=== PATIENT | female | born 1990 | race Two or more races ===

== ENCOUNTER 2024-09-08 15:07 | Observation (INO) | payer MEDICAID ==
[2024-09-08 16:30] LABS: Urine Bacteria FEW /hpf (None Seen); Urine Blood Negative /uL (Negative); Urine Clarity Clear (Clear); Urine Color Light-Yellow (Yellow); Urine Protein, UAD Negative (Negative); Urine Specific Gravity 1.009 (1.001-1.035); Urine Squamous Epithelial Cell FEW /hpf (<5); Urine Urobilinogen Normal (Negative); Urine WBC 12 /HPF (0-5); Urine pH 6.5 (5.0-9.0)
[2024-09-08 16:47] LABS: Basophils # (auto) 0 10 ^3/uL (0-0.2); Basophils % (auto) 0.6 % (0.0-2.0); Eosinophils # (auto) 0 10 ^3/uL (0-0.8); Eosinophils % (auto) 0.4 % (0.0-7.0); Hematocrit 38.2 % (36.0-46.0); Hemoglobin 12.8 g/dL (12.2-16.2); Lymphocytes # (auto) 1.3 10 ^3/uL (0.4-5.4); Lymphocytes % (auto) 14.8 % (10.0-50.0); Mean Corpuscular Hemoglobin 32.9 pg (28.0-32.0); Mean Corpuscular Hgb Conc. 33.4 g/dL (32.0-36.0); Mean Corpuscular Volume 98.5 fL (80.0-100.0); Monocytes # (auto) 0.7 10 ^3/uL (0-1.3); Monocytes % (auto) 7.7 % (0.0-12.0); Neutrophils # (auto) 6.6 10 ^3/uL (1.6-8.6); Neutrophils % (auto) 76.5 % (37.0-80.0); Nucleated Red Blood Cells % 0.1 %; Platelet Count (auto) 210 10^3/uL (140-450); Red Blood Cells 3.88 10^6/uL (4.0-5.20); Red Cell Distribution Width 13.4 % (11.8-14.3); White Blood Cell 8.7 10^3/uL (4.4-10.8)
[2024-09-08 16:57] LABS: Protein, Urine < 6.0 mg/dL (1-14)
[2024-09-08 16:59] LABS: Creatinine, Urine 17.48 mg/dL (30.0-125.0); Urine Protein/Creatinine Ratio 0.34
[2024-09-08 17:02] LABS: Alanine Aminotransferase 11 U/L (7-40); Anion Gap 9 (5-15); Aspartate Aminotransferase 17 U/L (13-40); BUN/Creatinine Ratio 11.3 (10.0-20.0); Calcium 10.4 mg/dL (8.7-10.4); Carbon Dioxide 23 mmol/L (20-31); Chloride 106 mmol/L (98-107); Glucose 78 mg/dL (74-106); Potassium 3.9 mmol/L (3.5-5.1); Sodium 138 mmol/L (136-145); Uric Acid 3.7 mg/dL (3.1-7.8)
[2024-09-08 17:03] LABS: Bilirubin, Total 0.6 mg/dL (0.2-1.0); Total Protein 6.4 g/dL (5.7-8.2)
[2024-09-08 17:05] LABS: Alkaline Phosphatase 143 U/L (46-116); Blood Urea Nitrogen 6 mg/dL (9-23)
[2024-09-08 17:06] LABS: INR 0.9 (0.9-1.15); Prothrombin Time 9.6 sec (9.3-11.8)
--- NOTE | 2024-09-08 17:11 | DVH ---
BIOPHYSICAL PROFILE HISTORY: high blood pressure Comparison Study: None TECHNIQUE: Multiple real-time grayscale sonographic images through the gravid uterus of the fetus wi th duplex Doppler color flow and M-mode spectral analysis FINDINGS: BIOPHYSICAL PROFILE: breathing score: 0 movement score: 2 tone score: 2 Quantitative RONEY score: 2 (RONEY: 14.2 Cm.) Total score: 6/8 The cervix is not visualized Single live fetus in cephalic presentation. heart rate 125 beats per minute. Grade 2, anterior placenta without previa or abruption Nonspecific abnormal appearing avascular dilated tubular structure in the abdomen; nonspecific. IMPRESSION: Biophysical profile score: 6/8 Nonspecific abnormal appearing avascular dilated tubular structure in the abdomen; nonspecific. Close clinical and sonographic follow-up advised. High-risk ob consultation could be considered if c linically indicated.
[2024-09-08] MEDS ORDERED: PREN-96 OR (17:33)
--- NOTE | 2024-09-10 09:04 | DVHDS2 ---
Physician Discharge Progress N Final Diagnosis: iup at 34wks r/o pi Operations or Procedures: Operations or Procedures nst 34 wks,sono Consultations: Consultations pi evans chaidezpt sched to see cheryl in one day and return for repeat bpp Condition on Discharge: Good Disposition: Home Discharge Instructions: Diet: Regular Activity: No Restrictions, As Tolerated Medications: na Follow Up Care: Specialist: 1d Discharge Statement: "Patient was advised to return to the ER or call 911 if any headaches, dizziness, shortness of breath, chest pain, abdominal pain, bleeding, fevers, or worsening of medical condition. Patient was counseled about treatment plan, medications, possible side effects, patientverbalized understanding. All questions were answered to the best of my ability. This discharge took greater then 30 minutes in planning, reviewing d ocumentation, counseling the patient, and discussing with other team members." Visit Coding OBGYN Date of Service: Sep 10, 2024 Billing Provider: SOFI FERNANDO DO SCALE RECLAMATION TENDER Common Visit Codes: 03518-[id number] INP/OBS CARE (HIGH), [id number] INP/OBS CARE(MOD), 80612-CHA/OBS SAME DATE (HIGH) SCALE RECLAMATION TENDER Procedure Codes: 48387-98- NON-STRESS TEST SOFI FERNANDO DO Sep 10, 2024 09:04
[2024-10-17] MEDS ORDERED: HYDR-4072 PO (20:50)
[2024-10-17] MEDS ORDERED: IBUP-1456 PO (20:50)
[2024-10-17] MEDS ORDERED: DOCU-94 PO (20:50)
== END 2024-09-08 17:45 | disposition home or self-care (01) ==
LOC: LDRP 15:07 → UNDOADMOB 15:07 → LDRP 15:23 → UNDODISOB 17:45
PROVIDERS: ADMIT Obstetrics & Gynecology; ATTEND Obstetrics & Gynecology
DX: O26.893 Other specified pregnancy related conditions, third trimester (principal); M79.89 Other specified soft tissue disorders; Z3A.34 34 weeks gestation of pregnancy; Z79.899 Other long term (current) drug therapy
CPT/HCPCS: 36415; 59025; 76819; 80053; 81001; 81002; 82570; 84156; 84550; 85025; 85610; 85730; 94760; G0378; 76818

== ENCOUNTER 2024-09-09 11:55 | Observation (INO) | payer MEDICAID ==
[~2024-09-09 11:55] MED LIST: PREN-96 OR
--- NOTE | 2024-09-14 14:47 | DVH ---
CLINICAL HISTORY: -induced hypertension. COMPARISON: US BIOPHYSICAL PROFILE on DOS: 09/08/24 TECHNIQUE: biophysical profile was performed. Transabdominal sonographic images of the fetus we re obtained. FINDINGS: The fetus is in cephalic position. heart rate measures 149 BPM. Amniotic fluid index measures 11.4 cm. The placenta is anterior in position. BPP profile is an overall score of 8/8, with 2/2 points for breathing, with at least one episode of breathing over a 30 second duration during a 30 minute observation, 2/2 points for m ovements, with 3 or more discrete body or limb movements, 2/2 points for tone, with one or more episodes of extremity extension with return to flexion, or opening and closing of hand, and 2/ 2 points for amniotic fluid, with at least 1 pocket of amniotic fluid that measures 2 cm in 2 perpend icular planes. IMPRESSION: BPP score of 8/8.
[2024-09-14 14:58] LABS: Urine Bacteria FEW /hpf (None Seen); Urine Blood Negative /uL (Negative); Urine Clarity Turbid (Clear); Urine Color Light-Yellow (Yellow); Urine Protein, UAD Negative (Negative); Urine Squamous Epithelial Cell MOD /hpf (<5); Urine Urobilinogen Normal (Negative); Urine WBC 25 /HPF (0-5); Urine pH 6.5 (5.0-9.0)
[2024-09-14 15:00] LABS: Basophils # (auto) 0 10 ^3/uL (0-0.2); Basophils % (auto) 0.2 % (0.0-2.0); Eosinophils # (auto) 0 10 ^3/uL (0-0.8); Eosinophils % (auto) 0.3 % (0.0-7.0); Hematocrit 35.5 % (36.0-46.0); Hemoglobin 12.4 g/dL (12.2-16.2); Lymphocytes % (auto) 13.7 % (10.0-50.0); Mean Corpuscular Hemoglobin 34.1 pg (28.0-32.0); Mean Corpuscular Volume 97.4 fL (80.0-100.0); Monocytes # (auto) 0.6 10 ^3/uL (0-1.3); Monocytes % (auto) 8.4 % (0.0-12.0); Neutrophils # (auto) 5.8 10 ^3/uL (1.6-8.6); Neutrophils % (auto) 77.4 % (37.0-80.0); Platelet Count (auto) 201 10^3/uL (140-450); Red Blood Cells 3.64 10^6/uL (4.0-5.20); Red Cell Distribution Width 13.3 % (11.8-14.3); White Blood Cell 7.5 10^3/uL (4.4-10.8)
[2024-09-14 15:00] LABS: Protein, Urine 10.5 mg/dL (1-14)
[2024-09-14 15:06] LABS: Alanine Aminotransferase 11 U/L (7-40); Anion Gap 8 (5-15); Aspartate Aminotransferase 17 U/L (13-40); BUN/Creatinine Ratio 13.1 (10.0-20.0); Bilirubin, Total 0.7 mg/dL (0.2-1.0); Calcium 9.8 mg/dL (8.7-10.4); Carbon Dioxide 23 mmol/L (20-31); Chloride 106 mmol/L (98-107); Glucose 93 mg/dL (74-106); INR 0.91 (0.9-1.15); Partial Thromboplastin Time 25.9 SEC (24.5-34.5); Potassium 3.8 mmol/L (3.5-5.1); Prothrombin Time 9.7 sec (9.3-11.8); Sodium 137 mmol/L (136-145); Total Protein 6.6 g/dL (5.7-8.2); Uric Acid 3.9 mg/dL (3.1-7.8)
[2024-09-14 15:06] LABS: Creatinine, Urine 59.32 mg/dL (30.0-125.0); Urine Protein/Creatinine Ratio 0.18
[2024-09-14 15:27] LABS: Alkaline Phosphatase 154 U/L (46-116); Blood Urea Nitrogen 8 mg/dL (9-23)
--- NOTE | 2024-09-14 21:11 | DVHDS2 ---
Physician Discharge Progress N Final Diagnosis: rule out preE Operations or Procedures: Operations or Procedures 34yo IUP@35.1wks, +FM, Denies LOF/VB/BURT/vision changes/RUQ pain. VSS, normotensive NST reactive FKC/PTL/PreE precautions reviewed f/u on 09/16/24 with [address] Sparrow consulted, agrees with POC. Laboratory Tests Test 09/14/24 14:00 09/14/24 14:27 Range/Units Urine Color Light-yellow Yellow Urine Clarity Turbid H Clear Urine pH 6.5 5.0-9.0 Urine Specific Whitmore 1.010 1.001-1.035 Urine Protein Negative Negative Urine Ketones Negative Negative Urine Blood Negative Negative /uL Urine Nitrite Negative Negative Urine Bilirubin Negative Negative Urine Urobilinogen Normal Negative mg/dL Urine Leukocyte Esterase 3+ Negative /uL Urine RBC 2 0 - 4 /hpf Urine Microscopic WBC 25 H 0-5 /HPF Urine Squamous Epithelial Cells Mod <5 /hpf Urine Bacteria Few H None Seen /hpf Urine Creatinine 59.32 30.0-125.0 mg/dL Urine Protein/Creatinine Ratio 0.18 Urine Glucose Normal Normal mg/dL Urine Total Protein 10.5 1-14 mg/dL White Blood Count 7.5 4.4-10.8 10^3/uL Red Blood Count 3.64 L 4.0-5.20 10^6/uL Hemoglobin 12.4 12.2-16.2 g/dL Hematocrit 35.5 L 36.0-46.0 % Mean Corpuscular Volume 97.4 80.0-100.0 fL Mean Corpuscular Hemoglobin 34.1 H 28.0-32.0 pg Mean Corpuscular Hemoglobin Concent 35.0 32.0-36.0 g/dL Red Cell Distribution Width 13.3 11.8-14.3 % Platelet Count 201 140-450 10^3/uL Mean Platelet Volume 8.8 6.9-10.8 fL Neutrophils (%) (Auto) 77.4 37.0-80.0 % Lymphocytes (%) (Auto) 13.7 10.0-50.0 % Monocytes (%) (Auto) 8.4 0.0-12.0 % Eosinophils (%) (Auto) 0.3 0.0-7.0 % Basophils (%) (Auto) 0.2 0.0-2.0 % Neutrophils # (Auto) 5.8 1.6-8.6 10 ^3/uL Lymphocytes # (Auto) 1.0 0.4-5.4 10 ^3/uL Monocytes # (Auto) 0.6 0-1.3 10 ^3/uL Eosinophils # (Auto) 0 0-0.8 10 ^3/uL Basophils # (Auto) 0 0-0.2 10 ^3/uL Nucleated Red Blood Cells 0.0 % Prothrombin Time 9.7 9.3-11.8 sec Prothrombin Time INR 0.91 0.9-1.15 Activated Partial Thromboplast Time 25.9 24.5-34.5 SEC Sodium Level 137 136-145 mmol/L Potassium Level 3.8 3.5-5.1 mmol/L Chloride Level 106 98-107 mmol/L Carbon Dioxide Level 23 20-31 mmol/L Anion Gap 8 5-15 Blood Urea Nitrogen 8 L 9-23 mg/dL Creatinine 0.61 0.550-1.02 mg/dL Glomerular Filtration Rate Calc 122 >90 mL/min BUN/Creatinine Ratio 13.1 10.0-20.0 Serum Glucose 93 74-106 mg/dL Uric Acid 3.9 3.1-7.8 mg/dL Calcium Level 9.8 8.7-10.4 mg/dL Total Bilirubin 0.7 0.2-1.0 mg/dL Aspartate Amino Transferase (AST) 17 13-40 U/L Alanine Aminotransferase (ALT) 11 7-40 U/L Alkaline Phosphatase 154 H 46-116 U/L Total Protein 6.6 5.7-8.2 g/dL Albumin 4.0 3.2-4.8 g/dL Other Interventions Other Interventions [place] [address] Ph: [phone] DIAGNOSTIC IMAGING Diagnostic Imaging Report : [id number] Signed PATIENT: YANCY HERNANDEZ MISHALACCT: [id number] UNIT: [id number] : 1990 LOC: LD ROOM / BED: [facility] / A AGE / SEX: 34 / F ADM STATUS: ADM IN SERVICE 1401 ORDERING PHYSICIAN: DONNIE SCHMIDT CNM PROCEDURE(s): BPP - BIOPHYSICAL PROFILE REASON: [facility] ORDER NUMBER(s): [id number], ACCESSION NUMBER(s): [id number] CLINICAL HISTORY: -induced hypertension. COMPARISON: US BIOPHYSICAL PROFILE on DOS: 09/08/24 TECHNIQUE: biophysical profile was performed. Transabdominal sonographic images of the fetus were obtained. FINDINGS: The fetus is in cephalic position. heart rate measures 149 BPM. Amniotic fluid index measures 11.4 cm. The placenta is anterior in position. BPP profile is an overall score of 8/8, with 2/2 points for breat jaxon, with at least one episode of breathing over a 30 second duration during a 30 minute observation, 2/2 points for movements, with 3 or more discrete body or limb movements, 2/2 points for tone, with one or more episodes of extremity extension with return to flexion, or opening and closing of hand, and 2/2 points for amniotic fluid, with at least 1 pocket of amniotic fluid that measures 2 cm in 2 perpendicular planes. IMPRESSION: BPP score of 8/8. ATED BY: FAVIAN GALLOWAY DO DICTATED DATE/TIME: 09/14/241444 SIGNED BY: FAVIAN GALLOWAY DO SIGNED DATE/TIME: 09/14/241444 CC: Condition on Discharge: Stable Disposition: Home Discharge Instructions: Diet: Regular Activity: No Restrictions, As Tolerated Medications: see med list Follow Up Care: Specialist: f/u on 09/16/24 with 24 hr urine collection Discharge Statement: "Patient was advised to return to the ER or call 911 if any headaches, dizziness, shortness of breath, chest pain, abdominal pain, bleeding, fevers, or worsening of medical condition. Patient was counseled about treatment plan, medications, possible side effects, patientverbalized understanding. All questions were answered to the best of my ability. This discharge took greater then 30 minutes in planning, reviewing documentation, counseling the patient, and discussing with other team members." Visit Coding OBGYN Date of Service: Sep 14, 2024 Billing Provider: DONNIE SCHMIDT CNM CHLOROBUTADIENE SCRUBBER OPERATOR Common Visit Codes: 93953-[id number] OBS CARE (MOD) CHLOROBUTADIENE SCRUBBER OPERATOR Procedure Codes: 12797-44- NON-STRESS TEST DONNIE SCHMIDT [facility] Sep 14, 2024 21:11
== END 2024-09-14 15:49 | disposition home or self-care (01) ==
LOC: UNDOADMOB 09-14 13:44 → LDRP 09-14 13:44 → UNDODISOB 09-14 15:49
PROVIDERS: ADMIT Obstetrics & Gynecology; ATTEND Obstetrics & Gynecology
DX: O13.3 Gestational [pregnancy-induced] hypertension without significant proteinuria, third trimester (principal); Z3A.35 35 weeks gestation of pregnancy; Z79.899 Other long term (current) drug therapy; Z98.890 Other specified postprocedural states
CPT/HCPCS: 36415; 76819; 80053; 81001; 81002; 82570; 84156; 84550; 85025; 85610; 85730; 94760; G0378; 59025; 76818

== ENCOUNTER 2024-09-16 06:34 | Observation (INO) | payer MEDICAID ==
[~2024-09-16] VITALS: Ht 160 cm; Wt 57.6 kg
[2024-09-16 10:47] LABS: Urine Bacteria FEW /hpf (None Seen); Urine Blood Negative /uL (Negative); Urine Protein, UAD Negative (Negative); Urine Specific Gravity 1.013 (1.001-1.035); Urine Squamous Epithelial Cell MOD /hpf (<5); Urine Urobilinogen Normal (Negative); Urine WBC 68 /HPF (0-5); Urine pH 5.5 (5.0-9.0)
[2024-09-16 10:48] LABS: Urine Clarity Cloudy (Clear); Urine Color Light-Yellow (Yellow)
[2024-09-16 10:50] LABS: Protein, Urine 12.7 mg/dL (1-14)
[2024-09-16 10:52] LABS: Creatinine, Urine 37.57 mg/dL (30.0-125.0); Urine Protein/Creatinine Ratio 0.34
--- NOTE | 2024-09-16 11:12 | DVH ---
BIOPHYSICAL PROFILE HISTORY: PIH Comparison Study: None available at time of dictation. TECHNIQUE: Multiple real-time grayscale sonographic images through the gravid uterus of the fetus wi th duplex Doppler color flow and M-mode spectral analysis FINDINGS: BIOPHYSICAL PROFILE: breathing score: 2 movement score: 2 tone score: 2 Quantitative RONEY score: 2 (RONEY: 11.2 Cm.) Total score: 8/8 Single live fetus in cephalic presentation. heart rate 144 beats per minute. Anterior placenta without previa or abruption Biophysical profile score 8/8 corresponding to an NIKKI of 10/18/24 IMPRESSION: Biophysical profile score: 8/8
[2024-09-16 11:27] LABS: Protein, Urine 8.8 mg/dL (1-14)
--- NOTE | 2024-09-17 15:19 | DVHDS2 ---
Physician Discharge Progress N Final Diagnosis: 35wks pih, Operations or Procedures: Operations or Procedures [id number],sono Condition on Discharge: Good Disposition: Home Discharge Instructions: Diet: Regular, Consistent carbohydrate Activity: Light activity Medications: na Follow Up Care: Specialist: 3d Discharge Statement: "Patient was advised to return to the ER or call 911 if any headaches, dizziness, shortness of breath, chest pain, abdominal pain, bleeding, fevers, or worsening of medical condition. Patient was counseled about treatment plan, medications, possible side effects, patientverbalized understanding. All questions were answered to the best of my ability. This discharge took greater then 30 minutes in planning, reviewing documentati on, counseling the patient, and discussing with other team members." Visit Coding OBGYN Date of Service: Sep 16, 2024 Billing Provider: SOFI FERNANDO DO BASEBALL GLOVE STUFFER Common Visit Codes: 72897-RHWZFRP INP/OBS CARE (HIGH) BASEBALL GLOVE STUFFER Procedure Codes: 74530-94- NON-STRESS TEST SOFI FERNANDO DO Sep 17, 2024 15:19
[2024-10-17] MEDS ORDERED: HYDR-4072 PO (20:50)
[2024-10-17] MEDS ORDERED: IBUP-1456 PO (20:50)
[2024-10-17] MEDS ORDERED: DOCU-94 PO (20:50)
[2024-10-19] MEDS ORDERED: IBUP-1455 PO (23:20)
[2024-10-19] MEDS ORDERED: PREN-96 PO (23:20)
[2024-10-19] MEDS ORDERED: FER325T PO (23:20)
== END 2024-09-16 14:55 | disposition home or self-care (01) ==
LOC: LDRP 10:00 → UNDOADMOB 10:00 → LDRP 10:14
PROVIDERS: ADMIT Obstetrics & Gynecology; ATTEND Obstetrics & Gynecology
DX: O13.3 Gestational [pregnancy-induced] hypertension without significant proteinuria, third trimester (principal); Z3A.35 35 weeks gestation of pregnancy; Z79.899 Other long term (current) drug therapy; Z98.890 Other specified postprocedural states
CPT/HCPCS: 59025; 76819; 81001; 81002; 82570; 84156; 94760; G0378; 76818

== ENCOUNTER 2024-09-23 06:17 | Observation (INO) | payer MEDICAID ==
--- NOTE | 2024-09-23 12:00 | DVH ---
CLINICAL HISTORY: -induced hypertension. COMPARISON: US BIOPHYSICAL PROFILE on DOS: 09/16/24, US BIOPHYSICAL PROFILE on DOS: 09/14/24, US BIOPHYSI JESUS PROFILE on DOS: 09/08/24 TECHNIQUE: biophysical profile was performed. Transabdominal sonographic images of the fetus we re obtained. FINDINGS: The fetus is in cephalic position. heart rate measures 160 BPM. Amniotic fluid index measures 13.4 cm. The placenta is anterior in position without evidence for previa or abruption. BPP profile is an overall score of 8/8, with 2/2 points for breathing, with at least one episode of breathing over a 30 second duration during a 30 minute observation, 2/2 points for m ovements, with 3 or more discrete body or limb movements, 2/2 points for tone, with one or more episodes of extremity extension with return to flexion, or opening and closing of hand, and 2/ 2 points for amniotic fluid, with at least 1 pocket of amniotic fluid that measures 2 cm in 2 perpend icular planes. IMPRESSION: BPP score of 8/8.
--- NOTE | 2024-09-23 21:39 | DVHDS2 ---
Physician Discharge Progress N Final Diagnosis: testing for PIH f/u Operations or Procedures: Operations or Procedures 34yo IUP@36.3wks, +FM, Denies LOF/VB/BURT/vision changes/RUQ pain. VSS, normotensive NST reactive Labs reviewed from last week. FKC/PTL/PreE precautions reviewed f/u twice weekly Dr. Sparrow consulted, agrees with POC. Other Interventions Other Interventions [place] [address] Ph: [phone] DIAGNOSTIC IMAGING Diagnostic Imaging Report : [id number] Signed PATIENT: YANCY HERNANDEZ MISHALACCT: [id number] UNIT: [id number] : 1990 LOC: [facility] ROOM / BED: TRIAGE3 / A AGE / SEX: 34 / F ADM STATUS: ADM IN SERVICE 1103 ORDERING PHYSICIAN: DONNIE SCHMIDT CNM PROCEDURE(s): BPP - BIOPHYSICAL PROFILE REASON: [facility] ORDER NUMBER(s): [id number], ACCESSION NUMBER(s): [id number] CLINICAL HISTORY: -induced hypertension. COMPARISON: US BIOPHYSICAL PROFILE on DOS: 09/16/24, US BIOPHYSICAL PROFILE on DOS: 09/14/24, US BIOPHYSICAL PROFILE on DOS: 09/08/24 TECHNIQUE: biophysical profile was performed. Transabdominal sonographic images of the fetus were obtained. FINDINGS: The fetus is in cephalic position. heart rate measures 160 BPM. Amniotic fluid index measures 13.4 cm. The placenta is anterior in position without evidence for previa or abruption. BPP profile is an overall score of 8/8, with 2/2 points for breathing, with at least one episode of breathing over a 30 second duration during a 30 minute observation, 2/2 points for movements, with 3 or more discrete body or limb movements, 2/2 points for tone, with one or more episodes of extremity extension with return to flexion, or opening and closing of hand, and 2/2 points for amniotic fluid, with at least 1 pocket of amniotic fluid that measures 2 cm in 2 perpendicular planes. IMPRESSION: BPP score of 8/8. ATED BY: MARI GALLOWAY DO DICTATED DATE/TIME: 09/23/24 1158 SIGNED BY: MARI GALLOWAY DO SIGNED DATE/TIME: 09/23/24 1158 CC: Condition on Discharge: Stable Disposition: Home Discharge Instructions: Diet: Regular Activity: No Restrictions, As Tolerated Medications: see med list Follow Up Care: Specialist: f/u twice weekly Discharge Statement: "Patient was advised to return to the ER or call 911 if any headaches, dizziness, shortness of breath, chest pain, abdominal pain, bleeding, fevers, or worsening of medical condition. Patient was counseled about treatment plan, medications, possible side effects, patientverbalized understanding. All questions were answered to the best of my ability. This discharge took greater then 30 minutes in planning, reviewing documentation, counseling the patient, and discussing with other team members." Visit Coding OBGYN Date of Service: Sep 23, 2024 Billing Provider: DONNIE SCHMIDT CNM MULTI NEEDLE MACHINE OPERATOR Common Visit Codes: 73333-[id number] OBS CARE (HIGH) MULTI NEEDLE MACHINE OPERATOR Procedure Codes: 78323-39- NON-STRESS TEST DONNIE SCHMIDT CNM Sep 23, 2024 21:39
== END 2024-09-23 12:57 | disposition home or self-care (01) ==
LOC: LDRP 10:57 → UNDOADMOB 10:57 → LDRP 11:10
PROVIDERS: ADMIT Obstetrics & Gynecology; ATTEND Obstetrics & Gynecology
DX: O13.3 Gestational [pregnancy-induced] hypertension without significant proteinuria, third trimester (principal); Z98.890 Other specified postprocedural states; Z79.899 Other long term (current) drug therapy; Z3A.36 36 weeks gestation of pregnancy
CPT/HCPCS: 76818; 81002; 94760; G0378; 59025; 76819

== ENCOUNTER 2024-09-27 13:58 | Observation (INO) | payer MEDICAID ==
--- NOTE | 2024-09-27 14:41 | DVH ---
BIOPHYSICAL PROFILE HISTORY: PIH Comparison Study: 09/23/2024 TECHNIQUE: Multiple real-time grayscale sonographic images through the gravid uterus of the fetus wi th duplex Doppler color flow and M-mode spectral analysis FINDINGS: BIOPHYSICAL PROFILE: breathing score: 2 movement score: 2 tone score: 2 Quantitative RONEY score: 2 (RONEY: 10.7 Cm.) Total score: 8 The cervix is not visualized Single live fetus in cephalic presentation. heart rate 148 beats per minute. Anterior placenta without previa or abruption IMPRESSION: Biophysical profile score: 8
--- NOTE | 2024-09-27 15:11 | DVHDS2 ---
Physician Discharge Progress N Final Diagnosis: Gestational HTN Operations or Procedures: Operations or Procedures NST/BPP Condition on Discharge: Stable Disposition: Home Discharge Instructions: Diet: Regular Activity: No Restrictions, As Tolerated Follow Up/Referral: [facility] September 30 at 11:00 am for NST/BPP Medications: N/A Follow Up Care: Discharge Statement: "Patient was advised to return to the ER or call 911 if any headaches, dizziness, shortness of breath, chest pain, abdominal pain, bleeding, fevers, or worsening of medical condition. Patient was counseled about treatment plan, medications, possible side effects, patientverbalized understanding. All questions were answered to the best of my ability. This discharge took greater then 30 minutes in planning, reviewing documentation, counseling the patient, and discussing with other team members." Visit Coding OBGYN Date of Service: Sep 27, 2024 Billing Provider: BARTOLO CASTILLO DO ACTIVITIES LEADER Common Visit Codes: 64325-HTN/OBS SAME DATE (HIGH) ACTIVITIES LEADER Procedure Codes: 20065-90- NON-STRESS TEST BARTOLO CASTILLO DO Sep 27, 2024 15:11
== END 2024-09-27 15:17 | disposition home or self-care (01) ==
LOC: LDRP 13:58 → UNDOADMOB 13:58 → LDRP 14:04
PROVIDERS: ADMIT Obstetrics & Gynecology; ATTEND Obstetrics & Gynecology
DX: O13.3 Gestational [pregnancy-induced] hypertension without significant proteinuria, third trimester (principal); Z3A.37 37 weeks gestation of pregnancy; Z79.899 Other long term (current) drug therapy
CPT/HCPCS: 76819; 81002; 94760; G0378

== ENCOUNTER 2024-09-30 06:08 | Observation (INO) | payer MEDICAID ==
--- NOTE | 2024-09-30 11:35 | DVH ---
BIOPHYSICAL PROFILE HISTORY: PIH Comparison Study: 09/27/2024 TECHNIQUE: Multiple real-time grayscale sonographic images through the gravid uterus of the fetus wi th duplex Doppler color flow and M-mode spectral analysis FINDINGS: BIOPHYSICAL PROFILE: breathing score: 2 movement score: 2 tone score: 2 Quantitative RONEY score: 2 (RONEY: 13.2 Cm.) Total score: 8 The cervix is not visualized Single live fetus in cephalic presentation. heart rate 138 beats per minute. Anterior placenta without previa or abruption IMPRESSION: Biophysical profile score: 8
--- NOTE | 2024-10-01 13:30 | DVHDS2 ---
Physician Discharge Progress N Final Diagnosis: iugr Operations or Procedures: Operations or Procedures nst,sono Condition on Discharge: Good Disposition: Home Discharge Instructions: Diet: Regular Activity: Light activity Medications: na Follow Up Care: Specialist: 4d Discharge Statement: "Patient was advised to return to the ER or call 911 if any headaches, dizziness, shortness of breath, chest pain, abdominal pain, bleeding, fevers, or worsening of medical condition. Patient was counseled about treatment plan, medications, possible side effects, patientverbalized understanding. All questions were answered to the best of my ability. This discharge took greater then 30 minutes in planning, reviewing documentation, counseling the patient, and discussing with other team members." Visit Coding OBGYN Date of Service: Sep 30, 2024 Billing Provider: SOFI FERNANDO DO BUSINESS MANAGEMENT ANALYST Common Visit Codes: 25948-ARWUQFF INP/OBS CARE (HIGH) BUSINESS MANAGEMENT ANALYST Procedure Codes: 39263-85- NON-STRESS TEST SOFI FERNANDO DO Oct 01, 2024 13:29
== END 2024-09-30 12:30 | disposition home or self-care (01) ==
LOC: LDRP 10:50
PROVIDERS: ADMIT Obstetrics & Gynecology; ATTEND Obstetrics & Gynecology
DX: O36.5130 Maternal care for known or suspected placental insufficiency, third trimester, not applicable or unspecified (principal); O13.3 Gestational [pregnancy-induced] hypertension without significant proteinuria, third trimester; Z3A.37 37 weeks gestation of pregnancy; Z79.899 Other long term (current) drug therapy; Z98.890 Other specified postprocedural states
CPT/HCPCS: 76818; 81002; 94760; G0378; 76819

== ENCOUNTER 2024-10-04 06:50 | Observation (INO) | payer MEDICAID ==
--- NOTE | 2024-10-04 12:59 | DVH ---
BIOPHYSICAL PROFILE HISTORY: pih Comparison: 09/30/2024 TECHNIQUE: Multiple transabdominal real-time grayscale sonographic images through the gravid uterus of the fetus with duplex Doppler color flow and M-mode spectral analysis FINDINGS: BIOPHYSICAL PROFILE: breathing score: 2/2 movement score: 2/2 tone score: 2/2 Quantitative RONEY score: 2/2 (RONEY: 16.2 Cm.) Total score: 8/8 The cervix closed Single live fetus in cephalic presentation. heart rate 133 beats per minute. anterior placenta without previa or abruption IMPRESSION: 1. Biophysical profile score: 8/8 2. Current amniotic fluid index is 16.2 cm compared to 13.2 cm on previous exam
--- NOTE | 2024-10-04 23:50 | DVHDS2 ---
Discharge Summary Date of Admission Oct 04, 2024 at 12:14 Date of Discharge: Oct 04, 2024 Admitting Diagnosis 38 weeks PIH monitoring Brief Hx & Hospital Course: NST BP check Condition at Discharge: Good Final Diagnosis/Problems List 38 weeks PIH Discharge Disposition: Home Discharge Instruct/Medications Diet: Regular Activity: No Restrictions, As Tolerated Discharge Statement: "Patient was advised to return to the ER or call 911 if any headaches, dizziness, shortness of breath, chest pain, abdominal pain, bleeding, fevers, or worsening of medical condition. Patient was counseled about treatment plan, medications, possible side effects, patientverbalized understanding. All questions were answered to the best of my ability. This discharge took greater then 30 minutes in planning, reviewing documentation, counseling the patient, and discussing with other team members." DME: Diagnosis: PIH 38 weeks ASSESSMENT ASSESSMENT Assessment Visit Coding OBGYN Date of Service: Oct 04, 2024 Billing Provider: ZITA NDIAYE DO OREMAN Common Visit Codes: 01903-MCL/OBS SAME DATE (LOW), 22686-BPE/OBS SAME DATE (MOD), 61908-DFZ/OBS SAME DATE (HIGH) OREMAN Procedure Codes: 16623-02- NON-STRESS TEST ZITA NDIAYE DO Oct 04, 2024 23:50
== END 2024-10-04 13:37 | disposition home or self-care (01) ==
LOC: UNDOADMOB 12:07 → LDRP 12:07
PROVIDERS: ADMIT Obstetrics & Gynecology; ATTEND Obstetrics & Gynecology
DX: O13.3 Gestational [pregnancy-induced] hypertension without significant proteinuria, third trimester (principal); O62.9 Abnormality of forces of labor, unspecified; Z98.890 Other specified postprocedural states; Z79.899 Other long term (current) drug therapy; Z3A.38 38 weeks gestation of pregnancy
CPT/HCPCS: 76819; 81002; 94760; G0378

== ENCOUNTER 2024-10-07 11:05 | Observation (INO) | payer MEDICAID ==
--- NOTE | 2024-10-07 12:09 | DVH ---
CLINICAL HISTORY: -induced hypertension COMPARISON: US BIOPHYSICAL PROFILE on DOS: 10/04/24, US BIOPHYSICAL PROFILE on DOS: 09/30/24, US BIOPHY SICAL PROFILE on DOS: 09/27/24 TECHNIQUE: biophysical profile was performed. Transabdominal sonographic images of the fetus we re obtained. FINDINGS: The fetus is in cephalic position. heart rate measures 148 BPM. Amniotic fluid index measures 10 cm. The placenta is anterior in position. BPP profile is an overall score of 8/8, with 2/2 points for breathing, with at least one episode of breathing over a 30 second duration during a 30 minute observation, 2/2 points for m ovements, with 3 or more discrete body or limb movements, 2/2 points for tone, with one or more episodes of extremity extension with return to flexion, or opening and closing of hand, and 2/ 2 points for amniotic fluid, with at least 1 pocket of amniotic fluid that measures 2 cm in 2 perpend icular planes. IMPRESSION: BPP score of 8/8.
--- NOTE | 2024-10-08 13:08 | DVHDS2 ---
Physician Discharge Progress N Final Diagnosis: PIH,IUGR 38WKS Operations or Procedures: Operations or Procedures NST 38WKS,SONO Condition on Discharge: Good Disposition: Home Discharge Instructions: Diet: Regular Activity: No Restrictions, As Tolerated Medications: NA Follow Up Care: Specialist: 3D Discharge Statement: "Patient was advised to return to the ER or call 911 if any headaches, dizziness, shortness of breath, chest pain, abdominal pain, bleeding, fevers, or worsening of medical condition. Patient was counseled about treatment plan, medications, possible side effects, patientverbalized understanding. All questions were answered to the best of my ability. This discharge took greater then 30 minutes in planning, reviewing documentation, counseling the patient, and discussing with other team members." Visit Coding OBGYN Date of Service: Oct 08, 2024 Billing Provider: SOFI FERNANDO DO PRESS LOADER Common Visit Codes: 20141-WNTRCMN INP/OBS CARE (HIGH) PRESS LOADER Procedure Codes: 08765-84- NON-STRESS TEST SOFI FERNANDO DO Oct 08, 2024 13:08
== END 2024-10-07 12:50 | disposition home or self-care (01) ==
LOC: UNDOADMOB 11:05 → LDRP 11:05
PROVIDERS: ADMIT Obstetrics & Gynecology; ATTEND Obstetrics & Gynecology
DX: O36.5130 Maternal care for known or suspected placental insufficiency, third trimester, not applicable or unspecified (principal); O13.3 Gestational [pregnancy-induced] hypertension without significant proteinuria, third trimester; Z3A.38 38 weeks gestation of pregnancy; Z79.899 Other long term (current) drug therapy
CPT/HCPCS: 59025; 76819; 81002; 94760; G0378

== ENCOUNTER 2024-10-11 12:55 | Observation (INO) | payer MEDICAID ==
--- NOTE | 2024-10-11 14:53 | DVH ---
BIOPHYSICAL PROFILE HISTORY: PIH TECHNIQUE: Multiple transabdominal real-time grayscale sonographic images through the gravid uterus of the fetus with duplex Doppler color flow and M-mode spectral analysis FINDINGS: BIOPHYSICAL PROFILE: breathing score: 2 movement score: 2 tone score: 2 Quantitative RONEY score: 2 (RONEY: 12.2 Cm.) Total score: 8/8 The cervix not measured Single live fetus in cephalic presentation. heart rate 141 beats per minute. Anterior Grade 3 placenta without previa or abruption Single live fetus at 39 weeks 0 days Biophysical profile score 8/8 corresponding to an NIKKI of 10/18/2024 Estimated weight not calculated g IMPRESSION: 1. Biophysical profile score: 8/8
--- NOTE | 2024-10-12 14:27 | DVHDS2 ---
Physician Discharge Progress N Final Diagnosis: pih ruled out 39wks Operations or Procedures: Operations or Procedures nst,sono Condition on Discharge: Good Disposition: Home Discharge Instructions: Diet: Regular Activity: No Restrictions, As Tolerated Medications: na Follow Up Care: Specialist: 3d Discharge Statement: "Patient was advised to return to the ER or call 911 if any headaches, dizziness, shortness of breath, chest pain, abdominal pain, bleeding, fevers, or worsening of medical condition. Patient was counseled about treatment plan, medications, possible side effects, patientverbalized understanding. All questions were answered to the best of my ability. This discharge took greater then 30 minutes in planning, reviewing documentation, counseling the patient, and discussing with other team members." Visit Coding OBGYN Date of Service: Oct 11, 2024 Billing Provider: SOFI FERNANDO DO BABBITT SPINNER Common Visit Codes: 10844-QATCYRGGSY INP/OBS CARE(HIGH) BABBITT SPINNER Procedure Codes: 68804-59- NON-STRESS TEST SOFI FERNANDO DO Oct 12, 2024 14:27
== END 2024-10-11 15:18 | disposition home or self-care (01) ==
LOC: UNDOADMOB 12:55 → LDRP 12:55
PROVIDERS: ADMIT Obstetrics & Gynecology; ATTEND Obstetrics & Gynecology
DX: O13.3 Gestational [pregnancy-induced] hypertension without significant proteinuria, third trimester (principal); Z98.890 Other specified postprocedural states; Z79.899 Other long term (current) drug therapy; Z3A.39 39 weeks gestation of pregnancy
CPT/HCPCS: 76818; 81002; G0378; 76819

== ENCOUNTER 2024-10-14 10:42 | Observation (INO) | payer MEDICAID ==
--- NOTE | 2024-10-14 11:40 | DVH ---
Procedure: US BIOPHYSICAL PROFILE 10/14/2024 11:02 AM Indication: PIH Comparison: US BIOPHYSICAL PROFILE on DOS: 10/11/24, US BIOPHYSICAL PROFILE on DOS: 10/07/24, US BIOPHY SICAL PROFILE on DOS: 10/04/24 Technique: Sonogram of gravid uterus utilizing grayscale and color techniques. FINDINGS: Single living intrauterine gestation. Presentation: Cephalic Placenta: Anterior heart rate: 148 bpm RONEY: 15 cm, DVP: 4 cm Maternal cervix: Not visualized Biophysical Profile: breathing score: 2 movement score: 2 tone: 2 Quantitative RONEY score: 2 Total score: 8/8 IMPRESSION: 1. Single living as above. 2. Biophysical profile score: 8/8.
[2024-10-17] MEDS ORDERED: IBUP-1456 PO (20:50)
[2024-10-17] MEDS ORDERED: DOCU-94 PO (20:50)
[2024-10-17] MEDS ORDERED: HYDR-4072 PO (20:50)
--- NOTE | 2024-10-19 14:37 | DVHDS2 ---
Physician Discharge Progress N Final Diagnosis: pij [id number] Operations or Procedures: Operations or Procedures nst,sono Condition on Discharge: Good Disposition: Home Discharge Instructions: Diet: Regular Activity: Light activity Medications: na Follow Up Care: Specialist: 3d Discharge Statement: "Patient was advised to return to the ER or call 911 if any headaches, dizzines s, shortness of breath, chest pain, abdominal pain, bleeding, fevers, or worsening of medical condition. Patient was counseled about treatment plan, medications, possible side effects, patientverbalized understanding. All questions were answered to the best of my ability. This discharge took greater then 30 minutes in planning, reviewing documentation, counseling the patient, and discussing with other team members." Visit Coding OBGYN Date of Service: Oct 14, 2024 Billing Provider: SOFI FERNANDO DO CIGARETTE MAKER Common Visit Codes: [id number] OBS CARE (HIGH) CIGARETTE MAKER Procedure Codes: 37153-00- NON-STRESS TEST SOFI FERNANDO DO Oct 19, 2024 14:37
[2024-10-19] MEDS ORDERED: FER325T PO (23:20)
[2024-10-19] MEDS ORDERED: PREN-96 PO (23:20)
[2024-10-19] MEDS ORDERED: IBUP-1455 PO (23:20)
== END 2024-10-14 12:43 | disposition home or self-care (01) ==
LOC: LDRP 10:42 → UNDOADMOB 10:42 → LDRP 10:48
PROVIDERS: ADMIT Obstetrics & Gynecology; ATTEND Obstetrics & Gynecology
DX: O13.3 Gestational [pregnancy-induced] hypertension without significant proteinuria, third trimester (principal); Z3A.39 39 weeks gestation of pregnancy; Z79.899 Other long term (current) drug therapy
CPT/HCPCS: 76818; 81002; 94760; G0378; 76819

== ENCOUNTER 2024-10-16 02:12 | Observation (INO) | payer MEDICAID ==
--- NOTE | 2024-10-16 13:22 | DVH ---
BIOPHYSICAL PROFILE HISTORY: R/o PIH, vaginal bleeding TECHNIQUE: Multiple transabdominal real-time grayscale sonographic images through the gravid uterus o f the fetus with duplex doppler color flow and M-mode spectral analysis FINDINGS: BIOPHYSICAL PROFILE: breathing score: 2 movement score: 2 tone score: 2 Quantitative RONEY score: 2 (RONEY: 13.3 cm.) Total score: 8/8 Single live fetus in cephalic presentation. heart rate 146 beats per minute. Anterior placenta without previa or abruption Biophysical profile score 8/8 corresponding to an NIKKI of 10/18/24 IMPRESSION: Biophysical profile score: 8/8
[2024-10-16 13:45] LABS: Basophils # (auto) 0 10 ^3/uL (0-0.2); Basophils % (auto) 0.2 % (0.0-2.0); Eosinophils # (auto) 0 10 ^3/uL (0-0.8); Eosinophils % (auto) 0.2 % (0.0-7.0); Hematocrit 38.5 % (36.0-46.0); Hemoglobin 13.1 g/dL (12.2-16.2); Lymphocytes # (auto) 1.1 10 ^3/uL (0.4-5.4); Lymphocytes % (auto) 12.4 % (10.0-50.0); Mean Corpuscular Hemoglobin 33.6 pg (28.0-32.0); Mean Corpuscular Hgb Conc. 34.1 g/dL (32.0-36.0); Mean Corpuscular Volume 98.8 fL (80.0-100.0); Monocytes # (auto) 0.6 10 ^3/uL (0-1.3); Monocytes % (auto) 7.2 % (0.0-12.0); Nucleated Red Blood Cells % 0.1 %; Platelet Count (auto) 186 10^3/uL (140-450); Red Cell Distribution Width 13.3 % (11.8-14.3); White Blood Cell 8.8 10^3/uL (4.4-10.8)
[2024-10-16 13:58] LABS: INR 0.88 (0.9-1.15); Partial Thromboplastin Time 26.9 SEC (24.5-34.5); Prothrombin Time 9.4 sec (9.3-11.8)
[2024-10-16 14:01] LABS: Alanine Aminotransferase 14 U/L (7-40); Albumin 4.1 g/dL (3.2-4.8); Anion Gap 8 (5-15); Aspartate Aminotransferase 18 U/L (13-40); BUN/Creatinine Ratio 11.9 (10.0-20.0); Bilirubin, Total 0.9 mg/dL (0.2-1.0); Calcium 9.9 mg/dL (8.7-10.4); Carbon Dioxide 22 mmol/L (20-31); Glucose 82 mg/dL (74-106); Potassium 4.1 mmol/L (3.5-5.1); Sodium 137 mmol/L (136-145); Total Protein 6.7 g/dL (5.7-8.2)
[2024-10-16 14:03] LABS: Alkaline Phosphatase 222 U/L (46-116); Blood Urea Nitrogen 8 mg/dL (9-23); Chloride 107 mmol/L (98-107)
[2024-10-16 14:27] LABS: Urine Bacteria FEW /hpf (None Seen); Urine Blood 3+ /uL (Negative); Urine Clarity Turbid (Clear); Urine Color Light-Yellow (Yellow); Urine Protein, UAD Negative (Negative); Urine Specific Gravity 1.007 (1.001-1.035); Urine Squamous Epithelial Cell FEW /hpf (<5); Urine Urobilinogen Normal (Negative); Urine WBC 51 /HPF (0-5); Urine pH 6.5 (5.0-9.0)
[2024-10-16 14:34] LABS: Protein, Urine 13.8 mg/dL (1-14)
[2024-10-16 14:35] LABS: Amphetamine Screen, Urine Neg (NEGATIVE); Barbiturate Scree,Urine Neg (NEGATIVE); Benzodiazephine Screen, Urine Neg (NEGATIVE); Cannabinoid Screen, Urine Neg (NEGATIVE); Cocaine Screen, Urine Neg (NEGATIVE); Creatinine, Urine 27.08 mg/dL (30.0-125.0); Opiate Scree,Urine Neg (NEGATIVE); Phencyclidine Screen, Urine Neg (NEGATIVE); Urine Protein/Creatinine Ratio 0.51
--- NOTE | 2024-10-16 15:47 | DVHDS2 ---
Physician Discharge Progress N Final Diagnosis: [id number] Operations or Procedures: Operations or Procedures nst,sono,labs Condition on Discharge: Good Disposition: Home Discharge Instructions: Diet: Regular Activity: Light activity Medications: na Follow Up Care: Specialist: 1d haven induction Discharge Statement: "Patient was advised to return to the ER or call 911 if any headaches, dizziness, shortness of breath, chest pain, abdominal pain, bleeding, fevers, or worsening of medical condition. Patient was counseled about treatment plan, medications, possible side effects, patientverbalized understanding. All questions were answered to the best of my ability. This discharge took greater then 30 minutes in planning, reviewing documentation, counseling the patient, and discussing with other team members." Visit Coding OBGYN Date of Service: Oct 16, 2024 Billing Provider: SOFI FERNANDO DO CUSTOMER SOLUTIONS COORDINATOR Common Visit Codes: [id number] INP/OBS CARE (HIGH) CUSTOMER SOLUTIONS COORDINATOR Procedure Codes: 38457-17- NON-STRESS TEST SOFI FERNANDO DO Oct 16, 2024 15:47
[2024-10-16 15:49] LABS: Uric Acid 4.5 mg/dL (3.1-7.8)
[2024-10-17] MEDS ORDERED: DOCU-94 PO (20:50)
[2024-10-17] MEDS ORDERED: IBUP-1456 PO (20:50)
[2024-10-17] MEDS ORDERED: HYDR-4072 PO (20:50)
[2024-10-19] MEDS ORDERED: IBUP-1455 PO (23:20)
[2024-10-19] MEDS ORDERED: PREN-96 PO (23:20)
[2024-10-19] MEDS ORDERED: FER325T PO (23:20)
== END 2024-10-16 15:38 | disposition home or self-care (01) ==
LOC: LDRP 12:08
PROVIDERS: ADMIT Obstetrics & Gynecology; ATTEND Obstetrics & Gynecology
DX: O13.3 Gestational [pregnancy-induced] hypertension without significant proteinuria, third trimester (principal); O26.853 Spotting complicating pregnancy, third trimester; Z3A.39 39 weeks gestation of pregnancy; Z79.899 Other long term (current) drug therapy
CPT/HCPCS: 36415; 59025; 76819; 80053; 80307; 81001; 81002; 82570; 84156; 84550; 85025; 85610; 85730; 94760; G0378

== ENCOUNTER 2024-10-17 02:50 | Inpatient (IN) | payer MEDICAID ==
[~2024-10-17] VITALS: Ht 160 cm; Wt 60.8 kg
[2024-10-17] MEDS ORDERED: BUTORPHANOL TARTRATE 2 MG/1 ML VIAL IV PRN ×2 (07:30)
[2024-10-17] MEDS ORDERED: PENICILLIN G POT 5MIL/D5 50ML 50 ML IV ONE (07:30)
[2024-10-17] MEDS ORDERED: LIDOCAINE 2%HCL (LOCAL ANESTH.) INJ 20ML MDV IJ PRN (07:30)
[2024-10-17 08:19] LABS: Basophils # (auto) 0 10 ^3/uL (0-0.2); Basophils % (auto) 0.2 % (0.0-2.0); Eosinophils # (auto) 0 10 ^3/uL (0-0.8); Eosinophils % (auto) 0.1 % (0.0-7.0); Hematocrit 37.9 % (36.0-46.0); Hemoglobin 12.8 g/dL (12.2-16.2); Lymphocytes # (auto) 0.9 10 ^3/uL (0.4-5.4); Lymphocytes % (auto) 7.4 % (10.0-50.0); Mean Corpuscular Hemoglobin 33.7 pg (28.0-32.0); Mean Corpuscular Hgb Conc. 33.9 g/dL (32.0-36.0); Mean Corpuscular Volume 99.5 fL (80.0-100.0); Monocytes # (auto) 0.5 10 ^3/uL (0-1.3); Monocytes % (auto) 4.4 % (0.0-12.0); Neutrophils # (auto) 10.4 10 ^3/uL (1.6-8.6); Neutrophils % (auto) 87.9 % (37.0-80.0); Platelet Count (auto) 197 10^3/uL (140-450); Red Blood Cells 3.81 10^6/uL (4.0-5.20); Red Cell Distribution Width 13.3 % (11.8-14.3); White Blood Cell 11.9 10^3/uL (4.4-10.8)
[2024-10-17 08:25] LABS: Urine Bacteria FEW /hpf (None Seen); Urine Blood 1+ /uL (Negative); Urine Clarity Clear (Clear); Urine Color Light-Yellow (Yellow); Urine Protein, UAD Negative (Negative); Urine Specific Gravity 1.006 (1.001-1.035); Urine Squamous Epithelial Cell FEW /hpf (<5); Urine Urobilinogen Normal (Negative); Urine WBC 5 /HPF (0-5); Urine pH 5.5 (5.0-9.0)
[2024-10-17 08:31] LABS: Protein, Urine 6.6 mg/dL (1-14)
--- NOTE | 2024-10-17 08:31 | DVHHP2 ---
OB CC & HPI Date Date of Admission: Oct 17, 2024 Patient Identification: : 1 Para: 0 EDC: Oct 18, 2024 EGA: [id number] Chief Complaints: Reason for admission: induction of labor Admission Nurse Assessment Rev: No History of Present Complaints PT IS ADMITTED FOR IOL ,PT IS REQUESTING IOL AND HAS BEEN COMING IN FOR POSSIBLE PIH ,HER LAST PC RATIO WAS .51 WITH BORDERLINE ELEVATED BP SUBSEQ DECISION TO PROCEED WITH IOL WAS MADE Past Medical History Cardiac: No pertinent Hx Pulmonary: No pertinent Hx Central Nervous System: No pertinent Hx GI: No pertinent Hx Hemotology/Oncology: No pertinent Hx Hepatobiliary: No pertinent Hx Psychiatric: No pertinent Hx Musculoskeletal: No pertinent Hx Rheumotologic: No pertinent Hx Infectious Disease: No peritnent Hx ENT: No pertinent Hx Renal/: No pertinent Hx Endocrine: No pertinent Hx Dermatology: No pertinent Hx Past Surgical History: No pertinent Hx OB History OB History Care: Good Care Ultrasounds: Normal mid trimester US Obstetrical Complications: None, Gestational Hypertension Medical Complications: None Allergies: Coded Allergies: NO KNOWN ALLERGIES (Unverified , 09/16/24) Home Meds Reported Medications Vit W/ Ferrous Fumara ( One Daily) Daily Tab, 1 OR, TAB 09/08/24 Current Medications Current Medications Medications (Trade) Dose Ordered Sig/Tarun Route PRN Reason Start Time Stop Time Status Last Admin Lactated Ringer's 1,000 ml @ 125 mls/hr Q8H IV 10/17/24 07:30 Penicillin G Potassium [id number] units/Dextrose 50 ml @ 100 mls/hr Q4H IV 10/17/24 11:30 Witch Nicole (Tucks) 1 pad PRN PRN TOP PERINEAL AREA DISCOMFORT 10/17/24 07:30 Sodium Lauryl Sulfate (Phisoderm) 240 ml PRN PRN TOP PERINEAL AREA DISCOMFORT 10/17/24 07:30 Benzocaine (Dermoplast) 1 applic PRN PRN TOP PERINEAL AREA DISCOMFORT 10/17/24 07:30 Butorphanol Tartrate (Stadol Injection) 1 mg Q4HPRN PRN IV MODERATE PAIN (4-6 PAIN SCALE) 10/17/24 07:30 Butorphanol Tartrate (Stadol Injection) 2 mg Q4HPRN PRN IV SEVERE PAIN (7-10 PAIN SCALE) 10/17/24 07:30 Misoprostol (Cytotec) 50 mcg Q4HPRN PRN PO CERVICAL RIPENING 10/17/24 07:30 Lidocaine HCl (Xylocaine) 20 ml ONCE PRN IJ PERINEAL AREA DISCOMFORT 10/17/24 07:30 Family & Social History Family/Social History Blood Type: Unknown Rubella: unknown RPR/VDRL: Negative GBS Status: Negative HBsAG: Negative Review of Systems Constitutional: No symptom reported Ears, Nose, & Throat: No symptom reported Eyes: No symptom reported Pulmonary/Respiratory: No symptom reported Cardiovascular: No symptom reported Gastrointestinal: No symptom reported Genitourinary: No symptom reported Musculoskeletal: No symptom reported Skin: No symptom reported Psychiatric: No symptom reported Endocrine: No symptom reported Hemotologic/Lymphatic: No symptom reported OB Admission Exam Physical Exam HEENT: TMs Normal, Fontanelles Normal, Nasal Mucosa Normal, Eyes non-injected, Oropharynx Normal, PERRLA, Moist Membranes, EOMI Heart: Rhythm Normal Lungs: Clear Abdomen: Non tender Extremities: Normal Reflexes: Normal Cervical Dilatation: Fingertip Effacement: 50% Station: -2 Membranes: Intact Heart Rate: 130's Accelerations: Accelerations Present Decelerations: No Decelerations Short Term Variability: Present Category Consultant Variability: Average (6-25) Contractions on Admission: >10 Minutes Apart Intensity: Mild OB Plan Plan Admitting Diagnosis: Induction of Labor FOR PIH Plan: Expectant Management, Induction Other Plan: INFORMED CONSENT OBTAINED Visit Coding OBGYN Date of Service: Oct 17, 2024 Billing Provider: SOFI FERNANDO DO SAUSAGE COOKER Common Visit Codes: [id number] INP/OBS CARE (HIGH) SAUSAGE COOKER Procedure Codes: 22623-06- NON-STRESS TEST SOFI FERNANDO DO Oct 17, 2024 08:31
[2024-10-17 08:33] LABS: INR 0.88 (0.9-1.15); Partial Thromboplastin Time 26.5 SEC (24.5-34.5); Prothrombin Time 9.4 sec (9.3-11.8)
[2024-10-17 08:33] LABS: Creatinine, Urine 31.2 mg/dL (30.0-125.0); Urine Protein/Creatinine Ratio 0.21
[2024-10-17 08:35] LABS: Amphetamine Screen, Urine Neg (NEGATIVE); Barbiturate Scree,Urine Neg (NEGATIVE); Benzodiazephine Screen, Urine Neg (NEGATIVE); Cannabinoid Screen, Urine Neg (NEGATIVE); Cocaine Screen, Urine Neg (NEGATIVE); Opiate Scree,Urine Neg (NEGATIVE); Phencyclidine Screen, Urine Neg (NEGATIVE)
[2024-10-17 08:37] LABS: Alanine Aminotransferase 10 U/L (7-40); Albumin 4.1 g/dL (3.2-4.8); Anion Gap 10 (5-15); Aspartate Aminotransferase 22 U/L (13-40); BUN/Creatinine Ratio 10.8 (10.0-20.0); Calcium 9.8 mg/dL (8.7-10.4); Potassium 3.7 mmol/L (3.5-5.1); Sodium 137 mmol/L (136-145); Total Protein 6.7 g/dL (5.7-8.2)
[2024-10-17 08:38] LABS: Alkaline Phosphatase 231 U/L (46-116); Blood Urea Nitrogen 7 mg/dL (9-23); Carbon Dioxide 19 mmol/L (20-31); Chloride 108 mmol/L (98-107); Glucose 134 mg/dL (74-106)
[2024-10-17] MEDS: miSOPROStol 50 MCG per PRE-CUT 1/2 TAB PO PRN (09:30)
--- NOTE | 2024-10-17 09:38 | DVHPN2 ---
Chief Complaints Patient reports: No new complaints Nursing reports: No new complaints Objective Medications Current Medications Medications (Trade) Dose Ordered Sig/Tarun Route PRN Reason Start Time Stop Time Status Last Admin Benzocaine (Dermoplast) 1 applic PRN PRN TOP PERINEAL AREA DISCOMFORT 10/17/24 07:30 Butorphanol Tartrate (Stadol Injection) 1 mg Q4HPRN PRN IV MODERATE PAIN (4-6 PAIN SCALE) 10/17/24 07:30 Butorphanol Tartrate (Stadol Injection) 2 mg Q4HPRN PRN IV SEVERE PAIN (7-10 PAIN SCALE) 10/17/24 07:30 Lactated Ringer's 1,000 ml @ 125 mls/hr Q8H IV 10/17/24 07:30 Lidocaine HCl (Xylocaine) 20 ml ONCE PRN IJ PERINEAL AREA DISCOMFORT 10/17/24 07:30 Misoprostol (Cytotec) 50 mcg Q4HPRN PRN PO CERVICAL RIPENING 10/17/24 07:30 10/17/24 09:30 Penicillin G Potassium [id number] units/Dextrose 50 ml @ 100 mls/hr Q4H IV 10/17/24 11:30 Sodium Lauryl Sulfate (Phisoderm) 240 ml PRN PRN TOP PERINEAL AREA DISCOMFORT 10/17/24 07:30 Witch Nicole (Tucks) 1 pad PRN PRN TOP PERINEAL AREA DISCOMFORT 10/17/24 07:30 Others exam unchanged Studies Laboratory Tests 10/17/24 07:56 Test 10/17/24 07:56 Range/Units Serum Glucose 134 H 74-106 mg/dL Ass/Plan Assessment iol Plan rec one cytotec Visit Coding OBGYN Date of Service: Oct 17, 2024 Billing Provider: SOFI FERNANDO DO MOLD CLEANER Common Visit Codes: [id number] INP/OBS CARE (HIGH) MOLD CLEANER Procedure Codes: 16322-25- NON-STRESS TEST SOIF FERNANDO DO Oct 17, 2024 09:38
[2024-10-17] MEDS ORDERED: PENICILLIN G POTASSIUM 2,500,000 UNITS in D5W 5% 50 ML IV SCH (11:30)
[2024-10-17] MEDS: NALOXONE HCL 0.4 MG/ML VIAL IV ONE (12:45)
[2024-10-17] MEDS: ePHEDrine SULFATE 50 MG/ML AMP IV ONE (12:45)
[2024-10-17] MEDS: ePHEDrine SULFATE 50 MG/ML AMP ONE (13:19)
[2024-10-17] MEDS: fentaNYL CITRATE 100 MCG/2 ML VL ONE (13:19)
[2024-10-17] MEDS: fentaNYL CITRATE 100 MCG/2 ML VL IV ONE (13:28)
[2024-10-17] MEDS: ROPIVACAINE HCL 200 ML ONE (13:31)
[2024-10-17] MEDS: LACTATED RINGER'S 1,000 ML IV SCH (13:32)
[2024-10-17] MEDS: LACTATED RINGER'S 1,000 ML IV ONE (13:32)
--- NOTE | 2024-10-17 13:44 | EPIDURAL ---
Anesthesia Procedural Note - Epidural Informed consent obtained?: Yes Medication Administered: Fentanyl 100 mcg Sterile prept drape: Yes Spinal level of insertion: L4-L5 Test dose of lidocaine & Epine: Negative Infusion started: Yes Start time: 12:57 End time: 13:25 Procedure description Procedure description: Called for labor analgesia. History taken, chart reviewed, patient examined at 1257 (BP 141/84 HR 109 spO2 99). Patient is at 39+weeks, here with PIH. Informed consent for CSE obtained. Sitting position, sterile prep and drape. Time out done at 1300. L4-5 space infiltrated with 1% lido. Epidural needle placed with ADILSON at 4cm at 1302 (BP 142/90 HR 104 spO2 99). 25G spinal needle +clear CSF. 15mcg fentanyl given IT at 1305 (BP 121/69 HR 93 spO2 98). Epidural catheter secured at 10cm. Aspiration and test dose (3cc1.5% lido with epi) negative at 1307 (BP 118/69 HR 80 spO2 99). 85mcg fentanyl given via epidural. Patient reports pain relief. 0.2% ropivacaine infusion started at 1321. Will follow as needed. EMILY CASTILLO MD Oct 17, 2024 13:44
[2024-10-17] MEDS ORDERED: TERBUTALINE SULFATE 1 MG/ML 1ML VIAL SC ONE (14:00)
[2024-10-17] MEDS ORDERED: LACT. RINGERS/OXYTOCIN 20UNITS 500 ML IV ONE (14:00)
[2024-10-17] MEDS: PHISODERM TOP SOLN 240ML BTL TOP PRN (14:15)
[2024-10-17] MEDS: DERMOPLAST 60ML BOTTLE TOP PRN (14:15)
[2024-10-17] MEDS: WITCH HAZEL-GLYCERIN PAD TOP PRN (14:15)
[2024-10-17] MEDS: LACT. RINGERS/OXYTOCIN 20UNITS 1,000 ML IV SCH (14:30)
[2024-10-17] MEDS: LACT. RINGERS/OXYTOCIN 20UNITS 500 ML IV ONE (14:30)
--- NOTE | 2024-10-17 18:31 | DVHPN2 ---
Chief Complaints Patient reports: No new complaints Nursing reports: No new complaints Objective Vitals Vital Signs Date Time Temp Pulse Resp B/P (MAP) Pulse Ox O2 Delivery O2 Flow Rate FiO2 10/17/24 13:28 134/85 Medications Current Medications Medications (Trade) Dose Ordered Sig/Tarun Route PRN Reason Start Time Stop Time Status Last Admin Benzocaine (Dermoplast) 1 applic PRN PRN TOP PERINEAL AREA DISCOMFORT 10/17/24 07:30 10/17/24 14:15 Butorphanol Tartrate (Stadol Injection) 1 mg Q4HPRN PRN IV MODERATE PAIN (4-6 PAIN SCALE) 10/17/24 07:30 Butorphanol Tartrate (Stadol Injection) 2 mg Q4HPRN PRN IV SEVERE PAIN (7-10 PAIN SCALE) 10/17/24 07:30 Lactated Ringer's 1,000 ml @ 125 mls/hr Q8H IV 10/17/24 07:30 10/17/24 14:15 Lidocaine HCl (Xylocaine) 20 ml ONCE PRN IJ PERINEAL AREA DISCOMFORT 10/17/24 07:30 Misoprostol (Cytotec) 50 mcg Q4HPRN PRN PO CERVICAL RIPENING 10/17/24 07:30 10/17/24 09:30 Oxytocin 1,000 ml @ 6 ml/hr Q24H IV 10/17/24 14:00 10/17/24 14:30 Sodium Lauryl Sulfate (Phisoderm) 240 ml PRN PRN TOP PERINEAL AREA DISCOMFORT 10/17/24 07:30 10/17/24 14:15 Witch Nicole (Tucks) 1 pad PRN PRN TOP PERINEAL AREA DISCOMFORT 10/17/24 07:30 10/17/24 14:15 Others VE-10CM/0/100 Studies Laboratory Tests 10/17/24 07:56 Test 10/17/24 07:56 Range/Units Serum Glucose 134 H 74-106 mg/dL Ass/Plan Assessment ACYIVE LABOR Plan AROM DONE LABOR DOWN Visit Coding OBGYN Date of Service: Oct 17, 2024 Billing Provider: SOFI FERNANDO DO ASSOCIATE FINANCIAL ANALYST Common Visit Codes: [id number] INP/OBS CARE(HIGH) ASSOCIATE FINANCIAL ANALYST Procedure Codes: 58252-57- NON-STRESS TEST SOFI FERNANDO DO Oct 17, 2024 18:31
[2024-10-17] MEDS: ceFAZolin 1GM/50ML 50 ML IV SCH (19:38)
[2024-10-17] MEDS ORDERED: LIDOCAINE HCL 2 %PF INJ 10ML AMP IJ ONE (20:14)
[2024-10-17] MEDS ORDERED: ceFAZolin 1GM/50ML 50 ML IV ONE (20:30)
[2024-10-17] MEDS ORDERED: oxyTOCIN 10 UNIT/ML 10ML VIAL ONE (20:47)
[2024-10-17] MEDS ORDERED: KETOROLAC TROMETH 30 MG/ML 1ML VIAL ONE (20:47)
[2024-10-17] MEDS ORDERED: ONDANSETRON HCL 4 MG/2 ML VIAL ONE (20:47)
[2024-10-17] MEDS ORDERED: ePHEDrine SULFATE 50 MG/ML AMP ONE (20:47)
[2024-10-17] MEDS ORDERED: MORPHINE SULF PF 5 MG/10 ML VIAL ONE (20:47)
[2024-10-17] MEDS ORDERED: fentaNYL CITRATE 100 MCG/2 ML VL ONE ×2 (20:47→21:24)
[2024-10-17] MEDS ORDERED: GLYCOPYRROLATE 0.2 MG/ML 1ML VIAL ONE (20:47)
[2024-10-17] MEDS ORDERED: HYDR-4072 PO ×2 (20:50)
[2024-10-17] MEDS ORDERED: DOCU-94 PO ×2 (20:50)
[2024-10-17] MEDS ORDERED: IBUP-1456 PO ×2 (20:50)
--- NOTE | 2024-10-17 20:50 | DVHPN2 ---
OB Labor Progress Note Date and Time Seen Date Seen: Oct 17, 2024 Time Seen: 19:50 Subjective Patient reports: No new complaints Monitoring Method Monitoring Method: External Heart Rate Heart Rate Baseline: 165 Heart Rate Variability: Moderate Presence of FHR Accelerations: No Presence of FHR Decelerations: No Are all 5 Components of the FH: Yes Contractions Contractions Frequency: Other (Q2-3min) Duration of Contraction: 80 Contractions Intensity: Moderate Contractions Resting Tone: Relaxed Membranes Membranes: Ruptured Amniotic Fluid Color: Clear Vaginal Exam Vaginal Exam Dilation: 10 Vaginal Exam Effacement: 100 Vaginal Exam Station: 0 Vaginal Exam Show: None Medications Medications - Pitocin: Yes Medication - Epidural: Yes Medication - Other Ancef Lab Results Lab Results Vital Signs Date Time Temp Pulse Resp B/P (MAP) Pulse Ox O2 Delivery O2 Flow Rate FiO2 10/18/24 04:00 107 16 121/74 (90) 96 10/18/24 03:00 98.7 98.7 10/17/24 22:35 Room Air I & O 10/18/24 07:00 Output Total 1300 ml Balance -1300 ml Output Urine Total 1300 ml Current Medications Medications (Trade) Dose Ordered Sig/Tarun Start Time Stop Time Status Last Admin Dose Admin Lactated Ringer's 1,000 ml @ 125 mls/hr Q8H 10/17/24 07:30 10/17/24 14:15 125 MLS/HR Penicillin G Potassium [id number] units/Dextrose 50 ml @ 100 mls/hr Q4H 10/17/24 11:30 10/17/24 13:39 DC Demetria Rivera (Tucks) 1 pad PRN PRN 10/17/24 07:30 10/17/24 14:15 1 PAD Sodium Lauryl Sulfate (Phisoderm) 240 ml PRN PRN 10/17/24 07:30 10/17/24 14:15 240 ML Benzocaine (Dermoplast) 1 applic PRN PRN 10/17/24 07:30 10/17/24 14:15 1 APPLIC Misoprostol (Cytotec) 50 mcg Q4HPRN PRN 10/17/24 07:30 10/17/24 23:45 DC 10/17/24 09:30 50 MCG Lidocaine HCl (Xylocaine) 20 ml ONCE PRN 10/17/24 07:30 Naloxone HCl (Narcan) 0.2 mg PRN ONCE 10/17/24 12:45 10/17/24 23:45 DC Ephedrine Sulfate (ePHEDrine SULFATE) 10 mg PRN ONCE 10/17/24 12:45 10/17/24 23:45 DC Fentanyl Citrate 100 mcg ONCE ONCE 10/17/24 12:45 10/17/24 23:45 DC 10/17/24 13:28 100 MCG Lactated Ringer's 1,000 ml @ 1,000 mls/hr Q1H ONCE 10/17/24 12:45 10/17/24 23:45 DC 10/17/24 13:32 1,000 MLS/HR Oxytocin 1,000 ml @ 6 ml/hr Q24H 10/17/24 14:00 10/17/24 23:45 DC 10/17/24 14:30 6 ML/HR Oxytocin 500 ml @ 125 mls/hr Q4H ONCE 10/17/24 14:30 10/17/24 18:29 DC Cefazolin Sodium 50 ml @ 100 mls/hr Q8H 10/17/24 19:00 10/17/24 23:47 DC 10/17/24 19:38 100 MLS/HR Ondansetron HCl (Zofran) 4 mg Q4HP PRN 10/17/24 21:00 X[place]ham Gum (Chewing Gum) 1 gum ONCE ONCE 10/17/24 21:00 10/17/24 21:01 DC Diphenhydramine HCl (Benadryl Injection) 25 mg Q4HP PRN 10/17/24 22:30 Ondansetron HCl (Zofran) 4 mg Q4HP PRN 10/17/24 22:30 Naloxone HCl (Narcan) 0.2 mg Q5M PRN 10/17/24 22:30 10/17/24 22:36 DC Dexamethasone Sodium Phosphate (Decadron Injection) 10 mg AUTOMOBILE GLASS TECHNICIAN PRN 10/17/24 22:30 10/17/24 22:31 DC Ketorolac Tromethamine (Toradol Injection) 15 mg Q6HP PRN 10/17/24 22:30 10/22/24 22:29 Diphenoxylate HCl/ Atropine (Lomotil Tablet) 5 mg ONCE ONCE 10/17/24 23:00 10/17/24 23:01 DC 10/17/24 23:10 5 MG Acetaminophen (Ofirmev) 1,000 mg Q8HP PRN 10/17/24 23:00 10/18/24 22:01 Cefazolin Sodium 50 ml @ 100 mls/hr Q8HR 10/18/24 05:00 10/18/24 04:47 100 MLS/HR Laboratory Tests Test 10/18/24 00:13 10/17/24 07:56 10/17/24 07:15 Range/Units White Blood Count 17.1 #H 4.4-10.8 10^3/uL Red Blood Count 3.26 L 4.0-5.20 10^6/uL Hemoglobin 11.1 L 12.2-16.2 g/dL Hematocrit 32.1 #L 36.0-46.0 % Mean Corpuscular Volume 98.5 80.0-100.0 fL Mean Corpuscular Hemoglobin 33.9 H 28.0-32.0 pg Mean Corpuscular Hemoglobin Concent 34.5 32.0-36.0 g/dL Red Cell Distribution Width 13.2 11.8-14.3 % Platelet Count 188 140-450 10^3/uL Mean Platelet Volume 9.3 6.9-10.8 fL Neutrophils (%) (Auto) 91.7 H 37.0-80.0 % Lymphocytes (%) (Auto) 4.2 L 10.0-50.0 % Monocytes (%) (Auto) 3.7 0.0-12.0 % Eosinophils (%) (Auto) 0.0 0.0-7.0 % Basophils (%) (Auto) 0.4 0.0-2.0 % Neutrophils # (Auto) 15.6 H 1.6-8.6 10 ^3/uL Lymphocytes # (Auto) 0.7 0.4-5.4 10 ^3/uL Monocytes # (Auto) 0.6 0-1.3 10 ^3/uL Eosinophils # (Auto) 0 0-0.8 10 ^3/uL Basophils # (Auto) 0.1 0-0.2 10 ^3/uL Nucleated Red Blood Cells 0.0 % Prothrombin Time 9.4 9.3-11.8 sec Prothrombin Time INR 0.88 L 0.9-1.15 Activated Partial Thromboplast Time 26.5 24.5-34.5 SEC Sodium Level 137 136-145 mmol/L Potassium Level 3.7 3.5-5.1 mmol/L Chloride Level 108 H 98-107 mmol/L Carbon Dioxide Level 19 L 20-31 mmol/L Anion Gap 10 5-15 Blood Urea Nitrogen 7 L 9-23 mg/dL Creatinine 0.65 0.550-1.02 mg/dL Glomerular Filtration Rate Calc 120 >90 mL/min BUN/Creatinine Ratio 10.8 10.0-20.0 Serum Glucose 134 H 74-106 mg/dL Calcium Level 9.8 8.7-10.4 mg/dL Total Bilirubin 1.0 0.2-1.0 mg/dL Aspartate Amino Transferase (AST) 22 13-40 U/L Alanine Aminotransferase (ALT) 10 7-40 U/L Alkaline Phosphatase 231 H 46-116 U/L Total Protein 6.7 5.7-8.2 g/dL Albumin 4.1 3.2-4.8 g/dL Treponema pallidum Antibody Non-reactive Negative Hepatitis C Antibody Negative Negative Urine Color Light-yellow Yellow Urine Clarity Clear Clear Urine pH 5.5 5.0-9.0 Urine Specific Gomer 1.006 1.001-1.035 Urine Protein Negative Negative Urine Ketones Negative Negative Urine Blood 1+ H Negative /uL Urine Nitrite Negative Negative Urine Bilirubin Negative Negative Urine Urobilinogen Normal Negative mg/dL Urine Leukocyte Esterase 1+ Negative /uL Urine RBC 1 0 - 4 /hpf Urine Microscopic WBC 5 0-5 /HPF Urine Squamous Epithelial Cells Few <5 /hpf Urine Bacteria Few H None Seen /hpf Urine Creatinine 31.20 30.0-125.0 mg/dL Urine Protein/Creatinine Ratio 0.21 Urine Glucose Normal Normal mg/dL Urine Total Protein 6.6 1-14 mg/dL Uric Acid 4.8 3.1-7.8 mg/dL Urine Opiates Screen Neg NEGATIVE Urine Fentanyl Screen Neg NEGATIVE Urine Barbiturates Screen Neg NEGATIVE Urine Phencyclidine Screen Neg NEGATIVE Urine Amphetamines Screen Neg NEGATIVE Urine Benzodiazepines Screen Neg NEGATIVE Urine Cocaine Screen Neg NEGATIVE Urine Cannabinoids Screen Neg NEGATIVE Consulting with Regarding Consulted with Dr Sparrow re: Labor status, head still at same station, swollen labia, FHR baseline 165/170, maternal axillary temp 99.5F. Arrest of descent & impending chorioamnionitis. Assessment Assessment IUP at 40w Arrest of descent in 2nd stage of labor Chorioamnionitis Plan Plan Per consultation with Dr Sparrow; will come in for primary . Plan discussed with: Patient, Spouse Visit Coding OBGYN Date of Service: Oct 17, 2024 Billing Provider: DAVID MERCHANT CNM REVIEW ASSISTANT Common Visit Codes: [id number] INP/OBS CARE(HIGH) REVIEW ASSISTANT Procedure Codes: 76125-84- NON-STRESS TEST DAVID MERCHANT CNM Oct 17, 2024 20:50
[2024-10-17] MEDS ORDERED: LACT. RINGERS/OXYTOCIN 20UNITS 1,000 ML IV ONE (21:00)
[2024-10-17] MEDS: GUM (CHEWING) 1 GUM CHEW CHEW ONE (21:00)
[2024-10-17] MEDS ORDERED: ONDANSETRON HCL 4 MG/2 ML VIAL IV PRN ×2 (21:00→22:30)
--- NOTE | 2024-10-17 21:28 | DVHHP ---
ADMIT DATE: 10/17/2024 CHIEF COMPLAINT: Arrest of descent, nonreassuring heart tracing, fetus at risk, tachycardia. HISTORY OF PRESENT ILLNESS: The patient is a 34-year-old 1, para 0 with EDC 10/18, estimated gestational age of 39 weeks, admitted for induction of labor. The patient was also noted to have mild preeclampsia. Baby weight 8.[address] Ramirez, subsequently and the patient requested induction of labor. The patient received 2 Cytotec, progressed to 10 cm, however arrested at 0 station and started having tachycardia, swollen external genitalia. Subsequently, the patient was taken for primary low transverse section. PAST MEDICAL HISTORY: None. PAST SURGICAL HISTORY: None. SOCIAL HISTORY: None. FAMILY HISTORY: None. OBSTETRIC AND GYNECOLOGIC HISTORY: Primigravid. REVIEW OF SYSTEMS: Consistent with HPI. PHYSICAL EXAMINATION: VITAL SIGNS: Stable. Temperature 99.9, heart rate 110. HEENT: Within normal limits. CARDIOVASCULAR: Tachycardic rate. LUNGS: Clear to auscultation. BREASTS: Symmetrical. No masses. ABDOMEN: Gravid. Positive heart. PELVIC: External genitalia swollen, cervix 10 cm, 0 station. EXTREMITIES: No clubbing, cyanosis or edema. IMPRESSION: * Intrauterine at 39 weeks with arrest of descent. * Nonreassuring heart tracing, fetus at risk. * tachycardia, suspect chorio. PLAN: Primary low transverse section. Informed consent obtained. Risks, complication of surgery including infection, bleeding, hematoma formation, injury to bowel, bladder, surrounding organs, possibility of DVT, pulmonary embolism, risk of anesthesia discussed with the patient. Options reviewed. All questions answered. The patient fully understands. She wishes to proceed with planned procedure. DO ELLI Kwok/ROBERT TID: [id number] RECEIPT: [id number]
--- NOTE | 2024-10-17 21:42 | DVHOP2 ---
Operative Report DATE OF OPERATION: 10/17/24 PREOPERATIVE DIAGNOSES: Term with arrest os descent,non reassuring fht,fetus at risk, tachycardia POSTOPERATIVE DIAGNOSES: same,compound presentation,op SURGEON: Yamilex Sparrow D.O./billy ANESTHESIOLOGIST: elise TYPE OF ANESTHESIA : epidural CONSENT: The patient was informed of the risks and benefits of the procedure. The patient was informed of the risks and benefits of the procedure. These include but are not limited to , complications of anesthesia, postoperative infection, incomplete relief of symptoms, recurrence of symptoms, damage to blood vessels, nerves and tendons, deep venous thrombosis, pulmonary embolism and possible need for repeat surgery in the future. FINDINGS: Baby [b] with Apgars of [6] and [8]. Grossly normal appearing tubes and ovaries.op ,compound presentation PROCEDURES: Primary low transverse section. PROCEDURE IN DETAIL: The patient was taken to the operating room. She already had an epidural in place. She was then placed in supine position with a leftward tilt. A Pfannenstiel skin incision was made 2 cm above the symphysis pubis. This incision was carried to the underlying layer of fascia. The fascia was nicked in the midline. The incision was extended laterally. The superior aspect of the fascial incision was grasped and elevated. The same procedure was done to the inferior aspect of the fascial incision. The rectus muscles were then in the midline. Peritoneum was identified and entered. Peritoneal incision was extended superiorly and inferiorly with good visualization of the bladder. Bladder blade was inserted. Vesicouterine peritoneum was identified and entered. Lower uterine segment was incised in a transverse fashion. The was delivered from vertex presentation.op and compound presentation. Infant was baby [b] with Apgars [6] and [8]. Placenta was then removed manually. Uterus was exteriorized and cleared of all clots and debris. The incision was repaired using 0 Vicryl in a double-layered fashion. No bleeding was noted. Uterus was then returned to the abdomen. The gutters were cleared off all clots and debris. Peritoneum was closed using 0 Vicryl, fascia was closed using 0 Maxon, and skin was closed using dave. The patient tolerated the procedure well. She was taken to the recovery room in stable condition. ESTIMATED BLOOD LOSS: Estimated blood loss was noted to be 1000 mL. Visit Coding OBGYN Date of Service: Oct 17, 2024 Billing Provider: YAMILEX SPARROW DO HEARING CARE PROFESSIONAL Common Visit Codes: [id number] INP/OBS CARE(LOW), [id number] INP/OBS CARE(HIGH) HEARING CARE PROFESSIONAL Procedure Codes: [id number] DELIVERY ONLY AYMILEX SPARROW DO Oct 17, 2024 21:42
--- NOTE | 2024-10-17 21:45 | POSTOP ---
Post-Operative Note Post-Operative Note Preop Diagnosis term preg w/failure to descent,non reassuring fht,fetus at risk, tachycardia Postop Diagnosis: same,op,compound presentation Operation performed pltcs Specimen baby boy,apgars 6-8,op,compound presentation Anesthesia: Regional Anesthesiologist: elise Blood Loss(fluid mgmt) 1000ml Surgeon Sofi Sparrow Pre Fabricator billy Implant na Complications & Mgmt none Date 10/17/24 Time 21:43 Visit Coding OBGYN Date of Service: Oct 17, 2024 Billing Provider: SOFI SPARROW DO MANAGER BENCH Common Visit Codes: [id number] INP/OBS CARE(HIGH) MANAGER BENCH Procedure Codes: [id number] DELIVERY ONLY SOFI SPARROW DO Oct 17, 2024 21:45
[2024-10-17 22:10] VITALS: PULSE 114; RESP 13; O2SAT 97
[2024-10-17] MEDS ORDERED: NALOXONE HCL 0.4 MG/ML VIAL IV PRN (22:30)
[2024-10-17] MEDS ORDERED: KETOROLAC TROMETH 30 MG/ML 1ML VIAL IV PRN (22:30)
[2024-10-17] MEDS ORDERED: DexAMETHasone SOD PHOS 10MG/1ML VIAL INJ IV PRN (22:30)
[2024-10-17] MEDS ORDERED: diphenhdrAMINE HCL 50 MG/1 ML VL IV PRN (22:30)
[2024-10-17 23:00] VITALS: BP 123/87; PULSE 114; RESP 16; TEMP 98.1; O2SAT 97
[2024-10-17] MEDS: DIPHENOXYLATE W/ATROPINE 2.5 MG TAB PO ONE (23:10)
[2024-10-18] VITALS (10 sets, daily range): BP systolic 94–129; BP diastolic 47–76; PULSE 87–107; RESP 16–18; TEMP 97.6–98.8; O2SAT 95–99
[2024-10-18 00:25] LABS: Basophils # (auto) 0.1 10 ^3/uL (0-0.2); Basophils % (auto) 0.4 % (0.0-2.0); Eosinophils # (auto) 0 10 ^3/uL (0-0.8); Hematocrit 32.1 % (36.0-46.0); Hemoglobin 11.1 g/dL (12.2-16.2); Lymphocytes # (auto) 0.7 10 ^3/uL (0.4-5.4); Lymphocytes % (auto) 4.2 % (10.0-50.0); Mean Corpuscular Hemoglobin 33.9 pg (28.0-32.0); Mean Corpuscular Hgb Conc. 34.5 g/dL (32.0-36.0); Mean Corpuscular Volume 98.5 fL (80.0-100.0); Monocytes # (auto) 0.6 10 ^3/uL (0-1.3); Monocytes % (auto) 3.7 % (0.0-12.0); Neutrophils # (auto) 15.6 10 ^3/uL (1.6-8.6); Neutrophils % (auto) 91.7 % (37.0-80.0); Platelet Count (auto) 188 10^3/uL (140-450); Red Blood Cells 3.26 10^6/uL (4.0-5.20); Red Cell Distribution Width 13.2 % (11.8-14.3); White Blood Cell 17.1 10^3/uL (4.4-10.8)
[2024-10-18] MEDS: ceFAZolin 1GM/50ML 50 ML IV SCH ×2 (04:47→12:59)
--- NOTE | 2024-10-18 06:15 | DVHPN2 ---
Progress Note Date Seen: Oct 18, 2024 Subjective S: Lochia minimal. Shaw cath draining clear urine. w/o problem. Pain well controlled with IV analgesic. vital signs Vital Sign Date Time Temp Pulse Resp B/P (MAP) Pulse Ox O2 Delivery O2 Flow Rate FiO2 10/18/24 04:00 107 16 121/74 (90) 96 10/18/24 03:00 98.7 98.7 10/17/24 22:35 Room Air medications Current Medications Medications Dose Ordered Sig/Tarun Route Start Time Stop Time Status Last Admin Dose Admin Lactated Ringer's 1,000 ml @ 125 mls/hr Q8H IV 10/17/24 07:30 10/17/24 14:15 125 MLS/HR Witch Nicole 1 pad PRN PRN TOP 10/17/24 07:30 10/17/24 14:15 1 PAD Sodium Lauryl Sulfate 240 ml PRN PRN TOP 10/17/24 07:30 10/17/24 14:15 240 ML Benzocaine 1 applic PRN PRN TOP 10/17/24 07:30 10/17/24 14:15 1 APPLIC Butorphanol Tartrate 1 mg Q4HPRN PRN IV 10/17/24 07:30 Cancel Butorphanol Tartrate 2 mg Q4HPRN PRN IV 10/17/24 07:30 Cancel Lidocaine HCl 20 ml ONCE PRN IJ 10/17/24 07:30 Ondansetron HCl 4 mg Q4HP PRN IV 10/17/24 21:00 Diphenhydramine HCl 25 mg Q4HP PRN IV 10/17/24 22:30 Ondansetron HCl 4 mg Q4HP PRN IV 10/17/24 22:30 Ketorolac Tromethamine 15 mg Q6HP PRN IV 10/17/24 22:30 10/22/24 22:29 Acetaminophen 1,000 mg Q8HP PRN IV 10/17/24 23:00 10/18/24 22:01 Cefazolin Sodium 50 ml @ 100 mls/hr Q8HR IV 10/18/24 05:00 10/18/24 04:47 100 MLS/HR laboratory and microbiology Laboratory Tests 10/18/24 00:13 10/17/24 07:56 Test 10/17/24 07:56 Range/Units Serum Glucose 134 H 74-106 mg/dL Objective A&O x3 NAD. Afebrile, VSS Chest: heart and lung sounds normal. Breasts: Nipples intact w/o cracks or soreness Abdomen: normal BS, soft, non-tender, no rebound or guarding, fundus firm @ U- 1, Lower abdominal Incision site with steri-strips on, open to fresh air same clean, dry and intact.incision edges in good approximation. No edema, erythema or induration Extremities: no edema or tenderness Lochia - minimal Assessment/Plan 34yo now Post operative & ppd #1 s/p Primary Section for Arrest of descent in 2nd stage, doing well. Blood Type: A Rh: Positive Breast feeding Rubella Immune Pain control with IV Analgesic Shaw to be d/cd Assist with and encourage ambulation Diet: Clear liquid, advance as tolerated Plan discussed with: Patient, Spouse Visit Coding OBGYN Date of Service: Oct 18, 2024 Billing Provider: DAVID MERCHANT CNM SEISMOGRAPH RECORDER Common Visit Codes: [id number] INP/OBS CARE(HIGH) DAIVD MERCHANT CNM Oct 18, 2024 06:15
--- NOTE | 2024-10-18 07:13 | DVHPN2 ---
Chief Complaints Patient reports: No new complaints Nursing reports: No new complaints Objective Vitals Vital Signs Date Time Temp Pulse Resp B/P (MAP) Pulse Ox O2 Delivery O2 Flow Rate FiO2 10/18/24 04:00 107 16 121/74 (90) 96 10/18/24 03:00 98.7 98.7 10/17/24 22:35 Room Air Medications Current Medications Medications (Trade) Dose Ordered Sig/Tarun Route PRN Reason Start Time Stop Time Status Last Admin Acetaminophen (Ofirmev) 1,000 mg Q8HP PRN IV PAIN SCALE 1-3 OR TEMP>100.4 10/17/24 23:00 10/18/24 22:01 Benzocaine (Dermoplast) 1 applic PRN PRN TOP PERINEAL AREA DISCOMFORT 10/17/24 07:30 10/17/24 14:15 Butorphanol Tartrate (Stadol Injection) 1 mg Q4HPRN PRN IV MODERATE PAIN (4-6 PAIN SCALE) 10/17/24 07:30 Cancel Butorphanol Tartrate (Stadol Injection) 2 mg Q4HPRN PRN IV SEVERE PAIN (7-10 PAIN SCALE) 10/17/24 07:30 Cancel Cefazolin Sodium 50 ml @ 100 mls/hr Q8HR IV 10/18/24 05:00 10/18/24 04:47 Diphenhydramine HCl (Benadryl Injection) 25 mg Q4HP PRN IV FOR ITCHING 10/17/24 22:30 Ketorolac Tromethamine (Toradol Injection) 15 mg Q6HP PRN IV MODERATE PAIN (4-6 PAIN SCALE) 10/17/24 22:30 10/22/24 22:29 Lactated Ringer's 1,000 ml @ 125 mls/hr Q8H IV 10/17/24 07:30 10/17/24 14:15 Lidocaine HCl (Xylocaine) 20 ml ONCE PRN IJ PERINEAL AREA DISCOMFORT 10/17/24 07:30 Ondansetron HCl (Zofran) 4 mg Q4HP PRN IV NAUSEA / VOMITING 10/17/24 21:00 Ondansetron HCl (Zofran) 4 mg Q4HP PRN IV NAUSEA / VOMITING 10/17/24 22:30 Sodium Lauryl Sulfate (Phisoderm) 240 ml PRN PRN TOP PERINEAL AREA DISCOMFORT 10/17/24 07:30 10/17/24 14:15 Witch Nicole (Tucks) 1 pad PRN PRN TOP PERINEAL AREA DISCOMFORT 10/17/24 07:30 10/17/24 14:15 General: Normal Lungs: Normal Cardiovascular: Normal Abdominal: Soft Extremities: Normal Studies Laboratory Tests 10/18/24 00:13 10/17/24 07:56 Test 10/17/24 07:56 Range/Units Serum Glucose 134 H 74-106 mg/dL Ass/Plan Assessment S/P PCS Plan SUPPORTIVE CARE Visit Coding OBGYN Date of Service: Oct 18, 2024 Billing Provider: SOFI FERNANDO DO MARKETING ADMINISTRATOR Common Visit Codes: [id number] INP/OBS CARE (HIGH) SOFI FERNANDO DO Oct 18, 2024 07:13
[2024-10-18 08:23] LABS: Basophils # (auto) 0 10 ^3/uL (0-0.2); Basophils % (auto) 0.1 % (0.0-2.0); Eosinophils # (auto) 0 10 ^3/uL (0-0.8); Hemoglobin 9.8 g/dL (12.2-16.2); Mean Corpuscular Hemoglobin 33.8 pg (28.0-32.0); Mean Corpuscular Hgb Conc. 33.9 g/dL (32.0-36.0); Mean Corpuscular Volume 99.8 fL (80.0-100.0); Monocytes # (auto) 1.3 10 ^3/uL (0-1.3); Monocytes % (auto) 6.6 % (0.0-12.0); Neutrophils % (auto) 88.3 % (37.0-80.0); Platelet Count (auto) 184 10^3/uL (140-450); Red Blood Cells 2.91 10^6/uL (4.0-5.20); Red Cell Distribution Width 13.4 % (11.8-14.3); White Blood Cell 19.3 10^3/uL (4.4-10.8)
[2024-10-18] MEDS: ACETAMINOPHEN IV 1000 MG/100ML (10MG/ML) IV PRN (08:58)
[2024-10-18] MEDS ORDERED: BISACODYL 10 MG RECT SUPP PR PRN (17:30)
[2024-10-18] MEDS ORDERED: HYDROcodone-ACET 5/325MG TAB PO PRN ×2 (17:30)
[2024-10-18] MEDS ORDERED: ACETAMINOPHEN IV 1000 MG/100ML (10MG/ML) IV PRN (17:45)
[2024-10-18] MEDS: SIMETHICONE 80 MG CHEWABLE TABLET PO SCH (17:53)
[2024-10-18] MEDS: DOCUSATE SOD 100 MG CAP PO SCH (21:54)
[2024-10-18] MEDS: FERROUS SULFATE 325mg EC TAB PO SCH (21:54)
[2024-10-19 03:00] VITALS: BP 117/72; PULSE 102; RESP 17; TEMP 98; O2SAT 96
[2024-10-19] MEDS: IBUPROFEN 800 MG TAB PO PRN (03:52)
[2024-10-19 07:24] VITALS: BP 101/63; PULSE 71; RESP 18; TEMP 97.7; O2SAT 97
[2024-10-19 11:30] VITALS: BP 114/64; PULSE 77; RESP 18; TEMP 98.6; O2SAT 99
[2024-10-19 15:30] VITALS: BP 114/62; PULSE 74; RESP 18; TEMP 98.3; O2SAT 99
[2024-10-19] MEDS ORDERED: CEPHALEXIN 250 MG CAP PO SCH (18:00)
[2024-10-19] MEDS: CEPHALEXIN 250 MG CAP PO SCH (18:18)
[2024-10-19 19:00] VITALS: BP 107/65; PULSE 94; RESP 16; TEMP 97.7; O2SAT 98
[2024-10-19 22:32] VITALS: BP 109/74; PULSE 98; RESP 12; TEMP 98; O2SAT 98
[2024-10-19] MEDS ORDERED: FER325T PO ×2 (23:20)
[2024-10-19] MEDS ORDERED: PREN-96 PO ×2 (23:20)
[2024-10-19] MEDS ORDERED: IBUP-1455 PO ×2 (23:20)
--- NOTE | 2024-10-20 00:06 | DVHDS2 ---
Obstetrics Discharge Summary Obstetrics Discharge Summary Date of Admission: Oct 17, 2024 Date of Discharge: Oct 20, 2024 Reason For Admission: Induction of Labor Procedures: NST Intrapartum Procedures: (Low transverse, Primary) Procedures: Antibiotics, Hct/date: (10/18/2024), Hgb/date: (10/18/2024) Operative Complicat: None Discharge Diagnosis: Term -Delivered, Failed Induction Discharge Information: Activity ( as tolerated, no heavy lifting and nothing in the vagina for 6 weeks), Diet (Routine), Medications (RX sent), Instructions (Routine), Discharge to (Home), Accompanied by (Partner), Discarge date (10/20/2024) Visit Coding OBGYN Date of Service: Oct 20, 2024 Billing Provider: DONNIE SCHMIDT CNM SUBMARINE WORKER Common Visit Codes: [id number]-VBL/OBS DISCH DAY <30MIN JUAN ALEJANDRO MDWF Oct 20, 2024 00:06
--- NOTE | 2024-10-20 00:14 | DVHPN2 ---
Progress Note Date Seen: Oct 20, 2024 Subjective S: bleeding is less, eating food without issues, denies lightheaded/dizziness, pain well controlled with oral medications, no concerns with urinating, passing flatus, no BM yet, ambulating well, well vital signs Vital Sign Date Time Temp Pulse Resp B/P (MAP) Pulse Ox O2 Delivery O2 Flow Rate FiO2 10/19/24 19:00 97.7 94 16 107/65 (79) 98 97.7 10/19/24 19:00 Room Air medications Current Medications Medications Dose Ordered Sig/Tarun Route Start Time Stop Time Status Last Admin Dose Admin Lactated Ringer's 1,000 ml @ 125 mls/hr Q8H IV 10/17/24 07:30 10/17/24 14:15 125 MLS/HR Witch Nicole 1 pad PRN PRN TOP 10/17/24 07:30 10/17/24 14:15 1 PAD Sodium Lauryl Sulfate 240 ml PRN PRN TOP 10/17/24 07:30 10/17/24 14:15 240 ML Benzocaine 1 applic PRN PRN TOP 10/17/24 07:30 10/17/24 14:15 1 APPLIC Butorphanol Tartrate 1 mg Q4HPRN PRN IV 10/17/24 07:30 Cancel Butorphanol Tartrate 2 mg Q4HPRN PRN IV 10/17/24 07:30 Cancel Lidocaine HCl 20 ml ONCE PRN IJ 10/17/24 07:30 Cancel Ondansetron HCl 4 mg Q4HP PRN IV 10/17/24 21:00 Diphenhydramine HCl 25 mg Q4HP PRN IV 10/17/24 22:30 Ondansetron HCl 4 mg Q4HP PRN IV 10/17/24 22:30 Cancel Ketorolac Tromethamine 15 mg Q6HP PRN IV 10/17/24 22:30 10/22/24 22:29 Hold Docusate Sodium 100 mg Q12HR PO 10/18/24 22:00 10/19/24 22:10 100 MG Dimethicone 80 mg QID PO 10/18/24 18:00 10/19/24 22:09 80 MG Bisacodyl 10 mg DAILYP PRN OK 10/18/24 17:30 Ibuprofen 800 mg Q8HP PRN PO 10/18/24 17:30 10/19/24 22:09 800 MG Ferrous Sulfate 325 mg Q12HR PO 10/18/24 22:00 10/19/24 22:10 325 MG Acetaminophen/ Hydrocodone Bitart 1 tab Q4HPRN PRN PO 10/18/24 17:30 Acetaminophen/ Hydrocodone Bitart 2 tab Q4HPRN PRN PO 10/18/24 17:30 Cephalexin 500 mg QID PO 10/19/24 18:00 UNV Cephalexin 500 mg QID PO 10/19/24 18:00 10/19/24 22:12 500 MG laboratory and microbiology Laboratory Tests 10/18/24 07:38 10/17/24 07:56 Test 10/17/24 07:56 Range/Units Serum Glucose 134 H 74-106 mg/dL Objective O: VSS Chest: heart sounds normal and lung sounds clear bilaterally Abd: soft, non-tender, fundus at U/firm/midline, active bowel sounds, no rebound or guarding Incision: Steri strips open to air, clean/dry/intact, edges well approximated Ext: Non-tender, No edema, 2+ BLE DTRs Lochia: minimal See lab results Problems(with codes): (1) Precipitous drop in hematocrit (2) S/P primary low transverse Assessment/Plan A: 34yo now POD#3 s/p primary Rh+ Rubella Immune Pain control with PO medications Bowel regimen P: D/C home today Rx sent to pharmacy precautions and preeclampsia warning signs reviewed F/U with [facility] office in 1 week Plan discussed with: Patient, Spouse Visit Coding OBGYN Date of Service: Oct 20, 2024 Billing Provider: DONNIE SCHMIDT CNM BEHAVIORAL TECHNICIAN Common Visit Codes: [id number] INP/OBS CARE(HIGH) JUAN ALEJANDRO MDWF Oct 20, 2024 00:14
[2024-10-20 03:00] VITALS: BP 125/72; PULSE 84; RESP 16; TEMP 98.1; O2SAT 98
[2024-10-20 07:15] VITALS: BP 121/61; PULSE 80; RESP 16; TEMP 97.7; O2SAT 97
--- NOTE | 2024-10-20 07:46 | DVHPN2 ---
Chief Complaints Patient reports: No new complaints, Feels better Nursing reports: No new complaints Objective Vitals Vital Signs Date Time Temp Pulse Resp B/P (MAP) Pulse Ox O2 Delivery O2 Flow Rate FiO2 10/20/24 03:00 98.1 84 16 125/72 (89) 98 98.1 10/19/24 19:00 Room Air Medications Current Medications Medications (Trade) Dose Ordered Sig/Tarun Route PRN Reason Start Time Stop Time Status Last Admin Cephalexin (Keflex Capsule) 500 mg QID PO 10/19/24 18:00 10/20/24 05:37 Cephalexin (Keflex Capsule) 500 mg QID PO 10/19/24 18:00 UNV General: Normal Lungs: Normal Cardiovascular: Normal Abdominal: Soft Extremities: Normal Studies Laboratory Tests 10/18/24 07:38 10/17/24 07:56 Test 10/17/24 07:56 Range/Units Serum Glucose 134 H 74-106 mg/dL Ass/Plan Assessment S/P PCS Plan dc home fu with hi Visit Coding OBGYN Date of Service: Oct 20, 2024 Billing Provider: SOFI FERNANDO DO FILING CLERK Common Visit Codes: [id number] INP/OBS CARE(HIGH) FILING CLERK Procedure Codes: [id number] @ TIME OF SOFI FERNANDO DO Oct 20, 2024 07:46
[2024-10-20 11:08] VITALS: BP 125/68; PULSE 84; RESP 18; TEMP 97.9; O2SAT 98
[2024-10-20 15:30] VITALS: BP 117/75; PULSE 94; RESP 18; TEMP 97.9; O2SAT 100
[2024-10-20 17:21] VITALS: PULSE 94; RESP 18; TEMP 97.9; O2SAT 100
== END 2024-10-20 17:21 | disposition home or self-care (01) | DRG 540 ==
LOC: LDRP 07:00 → OBSVTOIN 07:10 → LDRP 23:26
PROVIDERS: ADMIT Obstetrics & Gynecology; ATTEND Obstetrics & Gynecology
PROC: 10D00Z1 Extraction of Products of Conception, Low, Open Approach (ICD-10-PCS; principal; 2024-10-17 21:02)
DX: O14.04 Mild to moderate pre-eclampsia, complicating childbirth (principal); O41.1230 Chorioamnionitis, third trimester, not applicable or unspecified; O61.9 Failed induction of labor, unspecified; R71.0 Precipitous drop in hematocrit; O76 Abnormality in fetal heart rate and rhythm complicating labor and delivery; O32.6XX0 Maternal care for compound presentation, not applicable or unspecified; O32.8XX0 Maternal care for other malpresentation of fetus, not applicable or unspecified; O62.2 Other uterine inertia; Z37.0 Single live birth; Z3A.39 39 weeks gestation of pregnancy
CPT/HCPCS: 36415; 62282; 80053; 80307; 81001; 82570; 84156; 84550; 85025; 85610; 85730; 86780; 86803; 86850; 86900; 86901; 94760; 96360; 96361; 96365; 96366; G0378; J0131; J1885; J2405; J2590; J7060